=== PATIENT | male | born 1960 | race Caucasian/White ===

== ENCOUNTER 2017-08-16 01:14 | Inpatient (IN) | payer BC, OTHER ==
[2017-08-16 01:15] VITALS: BMI 30.2
--- NOTE | 2017-08-16 01:46 | ED PDOC ---
Arrival/HPI - General Chief Complaint: Chest Pain Time Seen by Provider: 08/16/17 01:16 Historian: Patient - History of Present Illness Narrative History of Present Illness (Text): 08/16/17 01:41 57 year old male, whose past medical history includes pericarditis, hypertension , and hypercholesteralemia, presents to the emergency department complaining of left sided chest discomfort associated with some pain to the left shoulder. Patient describes the discomfort as a burning sensation. Shoulder pain re reproducible with movement. Patient also reports tingling to the lips. He states the discomfort is better when he sits and seems to be aggravated when he lays down. Patient states the symptoms seem similar to his past medical history of percarditis. Denies any smoking or drug use. Patient denies any fever, chills , exertional chest pain, shortness of breath, nausea, vomiting, diarrhea, urinary symptoms, back pain, neck pain, headache, dizziness, or any other complaints. PMD: Dr. Holly Rodríguez Symptom Onset: Gradual Quality: Burning Activities at Onset: Light Context: Home Past Medical History - Provider Review Nursing Documentation Reviewed: Yes - Infectious Disease Hx of Infectious Diseases: None - Tetanus Immunization Tetanus Immunization: Unknown - Past Medical History Past Medical History: Non-Contributing - Cardiac Hx Hypertension: Yes - Pulmonary Hx Respiratory Disorders: No - Neurological Hx Neurological Disorder: No - HEENT Hx HEENT Disorder: No - Renal Hx Renal Disorder: No - Endocrine/Metabolic Hx Endocrine Disorders: No - Hematological/Oncological Hx Blood Disorders: No - Integumentary Hx Dermatological Disorder: No - Musculoskeletal/Rheumatological Hx 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) - Gastrointestinal Hx Gastrointestinal Disorders: No - Genitourinary/Gynecological Hx Genitourinary Disorders: No - Psychiatric Hx Psychophysiologic Disorder: No Hx Substance Use: No - Past Surgical History Past Surgical History: No Previous - Surgical History Other/Comment: hemroidectomy 1 yr ago - Anesthesia Hx Anesthesia: Yes Hx Anesthesia Reactions: No Hx Malignant Hyperthermia: No - Suicidal Assessment Feels Threatened In Home Enviroment: No Family/Social History - Physician Review Nursing Documentation Reviewed: Yes Family/Social History: No Known Family HX Smoking Status: Never Smoked Hx Alcohol Use: Yes (occasionly) Amount per day: 1 Hx Substance Use: No Hx Substance Use Treatment: No Allergies/Home Meds Allergies/Adverse Reactions: Allergies No Known Allergies Allergy (Verified 08/16/17 01:21) Home Medications: Home Meds Medication Instructions Recorded Confirmed Simvastatin 20 mg PO HS 03/12/14 08/16/17 Valsartan [Diovan] 160 mg PO DAILY 08/16/17 08/16/17 Review of Systems - Physician Review All systems were reviewed & negative as marked: Yes - Review of Systems Constitutional: absent: Fevers, Other (Chills) Respiratory: absent: SOB, Cough Cardiovascular: Chest Pain (Left sided ) Gastrointestinal: absent: Diarrhea, Nausea, Vomiting Genitourinary Male: absent: Dysuria, Frequency, Hematuria Musculoskeletal: Other (Left shoulder pain ). absent: Back Pain, Neck Pain Neurological: Other (tingling to the lips). absent: Headache, Dizziness Physical Exam Vital Signs Reviewed: Yes Vital Signs Temp Pulse Resp BP Pulse Ox 08/16/17 03:37 75 14 141/92 H 99 08/16/17 01:27 98.5 F 08/16/17 01:23 80 24 164/93 H 98 Temperature: Afebrile Blood Pressure: Hypertensive Pulse: Regular Respiratory Rate: Normal Appearance: Positive for: Well-Appearing, Non-Toxic, Comfortable Pain Distress: None Mental Status: Positive for: Alert and Oriented X 3 - Systems Exam Head: Present: Atraumatic, Normocephalic Pupils: Present: PERRL Extroacular Muscles: Present: EOMI Conjunctiva: Present: Normal Mouth: Present: Moist Mucous Membranes Neck: Present: Normal Range of Motion Respiratory/Chest: Present: Clear to Auscultation, Good Air Exchange. No: Respiratory Distress, Accessory Muscle Use Cardiovascular: Present: Regular Rate and Rhythm, Normal S1, S2. No: Murmurs Abdomen: No: Tenderness, Distention, Peritoneal Signs Back: Present: Normal Inspection Upper Extremity: Present: Other (reproducible discomfort to the left shoulder with movement. ). No: Cyanosis, Edema Lower Extremity: Present: Normal Inspection. No: Edema, CALF TENDERNESS, Jim' s Sign, Swelling Neurological: Present: GCS=15, CN II-XII Intact, Speech Normal Skin: Present: Warm, Dry, Normal Color. No: Rashes Psychiatric: Present: Alert, Oriented x 3, Normal Insight, Normal Concentration Medical Decision Making ED Course and Treatment: 08/16/17 01:51 Impression: 57 year old male presents complaining of left sided burning chest discomfort associated with reproducible left shoulder pain Differential Diagnosis included but are not limited to: Muscular Skeletal chest pain VS Pericarditis VS CAD Plan: -- EKG -- Labs -- Chest X-ray -- Aspirin -- Reassess and disposition Prior Visits: Notes and results from previous visits were reviewed. Patient was last seen in the emergency department on 11/25/14 presents complaining of recurrent chest pain. Patient was discharged. Progress Notes: EKG shows NSR at [address]/T changes. Interpreted by me. 08/16/17 03:22 CXR Impression: As read by me, no acute process. 08/16/17 03:[address] Victor who is aware and agrees with the plan. Accepts patient into her service with Dr. Palomino for consult. Patient will be admitted to Telemetry. - Lab Interpretations Lab Results: 08/16/17 01:40 08/16/17 01:40 Lab Results 08/16/17 10:30: ESR 3 08/16/17 07:55: Hepatitis A IgM Ab Negative, Hep Bs Antigen Negative, Hep B Core IgM Ab Negative, Hepatitis C Antibody Negative 08/16/17 07:30: TSH 3rd Generation 1.40 08/16/17 07:30: Hemoglobin A1c 6.3 08/16/17 07:30: Phosphorus 3.2, Magnesium 1.9, Lactate Dehydrogenase 385, Total Creatine Kinase 83, Troponin I < 0.01 D, Triglycerides 212 H, Cholesterol 137, LDL Cholesterol Direct 57, HDL Cholesterol 43 08/16/17 07:00: Lipase 58 08/16/17 01:40: WBC 6.1 D, RBC 4.46, Hgb 14.3, Hct 40.9 L, MCV 91.7, MCH 32.1, MCHC 35.0, RDW 13.1, Plt Count 237, MPV 12.1 H 08/16/17 01:40: Sodium 141, Potassium 4.6, Chloride 107, Carbon Dioxide 23, Anion Gap 15, BUN 21, Creatinine 0.9, Est GFR ( Amer) > 60, Est GFR (Non- Af Amer) > 60, Random Glucose 163 H, Calcium 9.9, Total Bilirubin 0.6, AST 86 H , ALT 78 H, Alkaline Phosphatase 71, Lactate Dehydrogenase 665, Total Creatine Kinase 111, Troponin I 0.02 D, Total Protein 6.9, Albumin 4.2, Globulin 2.6, Albumin/Globulin Ratio 1.6 08/16/17 01:40: PT 11.0, INR 0.97, APTT 25.9 I have reviewed the lab results: Yes - RAD Interpretation Radiology Orders: 08/16/17 01:34 CHEST PORTABLE [RAD] Stat 08/16/17 07:56 ABDOMEN COMPLETE [US] Urgent 08/16/17 12:21 ABDOMEN W/WO CONTRAST [CT] Routine - EKG Interpretation Interpreted by ED Physician: Yes Type: 12 lead EKG - Medication Orders Current Medication Orders: Discontinued Medications Aspirin (Aspirin) 325 mg PO ONCE STA Stop: 08/16/17 01:36 Last Admin: 08/16/17 01:47 Dose: 325 mg Atorvastatin Calcium (Lipitor) 10 mg PO HS [place] Last Admin: 08/16/17 21:53 Dose: 10 mg Ibuprofen (Motrin Tab) 600 mg PO Q6H PRN PRN Reason: Pain, moderate (4-7) Last Admin: 08/17/17 03:03 Dose: 600 mg [facility] Pain/Vitals Document 08/17/17 03:03 AP (Rec: 08/17/17 03:03 AP [id number]) Pain Reassessment Is This A Pain ReAssessment? No Presence of Pain Presence of Pain Yes Pain Scale Used Pain Scale Used Numeric Location Pain Location Body Vegetable Washer Description Intermittent Intensity 5 Pain Behavior Restlessness Alleviating Factors Medication Re-Assess: [facility] Pain/Vitals Document 08/17/17 04:03 AP (Rec: 08/17/17 04:16 AP [id number]) Pain Reassessment Is This A Pain ReAssessment? Yes Sleep Is patient sleeping during reassessment? Yes Indomethacin (Indocin) 25 mg PO TID [facility] Last Admin: 08/17/17 17:24 Dose: Losartan Potassium (Cozaar) 100 mg PO DAILY [facility] Last Admin: 08/17/17 09:20 Dose: 100 mg Pantoprazole Sodium (Protonix Ec Tab) 40 mg PO 0600 [facility] Last Admin: 08/17/17 05:39 Dose: 40 mg Pantoprazole Sodium (Protonix Ec Tab) 40 mg PO STAT STA Stop: 08/16/17 20:25 Last Admin: 08/16/17 21:53 Dose: 40 mg - Scribe Statement The provider has reviewed the documentation as recorded by the Jhoana Hartmann Provider Butchibmike Attestation: All medical record entries made by the Jhoana were at my direction and personally dictated by me. I have reviewed the chart and agree that the record accurately reflects my personal performance of the history, physical exam, medical decision making, and the department course for this patient. I have also personally directed, reviewed, and agree with the discharge instructions and disposition. Disposition/Present on Arrival - Present on Arrival Any Indicators Present on Arrival: No History of DVT/PE: No History of Uncontrolled Diabetes: No Urinary Catheter: No History of Decub. Ulcer: No History Surgical Site Infection Following: None - Disposition Have Diagnosis and Disposition been Completed?: Yes Diagnosis: Chest pain Disposition: HOSPITALIZED Disposition Time: 03:33 Patient Plan: Observation Condition: STABLE
[2017-08-16 02:07] LABS: CALCIUM 9.9 mg/dL (8.4-10.5); GFR AFRICAN-AMERICAN > 60; GFR NON-AFRICAN AMERICAN > 60
[2017-08-16 02:12] LABS: ALB/GLOB RATIO 1.6 (1.1-1.8); ALBUMIN 4.2 g/dL (3.0-4.8); ALT/SGPT 78 U/L (7-56); AST/SGOT 86 U/L (17-59); BLOOD UREA NITROGEN 21 mg/dL (7-21)
[2017-08-16 02:18] LABS: HEMOGLOBIN 14.3 g/dL (14.0-18.0); MEAN CELL VOLUME 91.7 fl (80.0-105.0); MEAN CORPUSCULAR HEMOGLOBIN 32.1 pg (25.0-35.0); MEAN PLATELET VOLUME 12.1 fl (7.0-11.0); RBC 4.46 10^6/uL (3.5-6.1); RED CELL DISTRIBUTION WIDTH 13.1 % (11.5-14.5); WHITE BLOOD COUNT 6.1 10^3/ul (4.5-11.0)
[2017-08-16 02:21] LABS: INR 0.97 (0.93-1.08)
[2017-08-16 02:22] LABS: PARTIAL THROMBOPLASTIN TIME 25.9 Seconds (25.1-36.5)
[2017-08-16 02:23] LABS: TROPONIN I 0.02 ng/mL
[2017-08-16 08:04] LABS: HDL CHOLESTEROL 43 mg/dL (29-60)
[2017-08-16 08:15] LABS: LDL CHOLESTEROL 57 mg/dL (0-129)
[2017-08-16 08:20] LABS: TROPONIN I < 0.01 ng/mL
--- NOTE | 2017-08-16 09:38 | RAD ---
HISTORY: Chest pain COMPARISON: 11/25/2014. FINDINGS: LUNGS: The lungs are clear. PLEURA: No significant pleural effusion identified, no pneumothorax apparent. CARDIOVASCULAR: Normal. OSSEOUS STRUCTURES: No significant abnormalities. VISUALIZED UPPER ABDOMEN: Normal. OTHER FINDINGS: None. IMPRESSION: No active pulmonary disease.
--- NOTE | 2017-08-16 10:01 | US ---
HISTORY: ab.lft, especially liver COMPARISON: None. TECHNIQUE: Grayscale imaging was performed. FINDINGS: LIVER: Measures 18.0 cm. There is diffuse increased echogenicity of the liver parenchyma. No mass. No intrahepatic bile duct dilatation. GALLBLADDER: There are no gallstones, wall thickening or pericholecystic fluid. The sonographic Peres's sign is negative. COMMON BILE DUCT: Measures 4.7 mm. No stones. No dilatation. PANCREAS: The pancreas appears enlarged with areas of decreased echogenicity. No ductal dilatation. RIGHT KIDNEY: Measures 10.2cm. Normal echogenicity. No calculus, mass, or hydronephrosis. LEFT KIDNEY: Measures 11.4cm. Normal echogenicity. No calculus, mass, or hydronephrosis. SPLEEN: There is borderline is. No mass. AORTA: No aneurysmal dilatation. IVC: Unremarkable. OTHER FINDINGS: None. IMPRESSION: Mild hepatosplenomegaly. Diffuse increased echogenicity in the liver may reflect hepatic steatosis however parenchymal infectious/ inflammatory etiologies cannot be entirely excluded. Clinical and laboratory correlation is advised. Apparent enlarged pancreas with questionable areas of edema. Pancreatitis cannot be entirely excluded. Please correlate with serum lipase levels. If clinically indicated, CT scan of the abdomen may be performed for further evaluation.
--- NOTE | 2017-08-16 10:38 | CARD ---
APPROVED REPORT EKG Measurement Heart [id number] <Conclusion> Normal sinus rhythm Possible Left atrial enlargement ST elevation, probably due to early repolarization No change
[2017-08-16 11:45] LABS: HEPATITIS B SURFACE AG Negative (NEGATIVE)
[2017-08-16 11:51] LABS: HEPATITIS B CORE AB NEGATIVE (NEGATIVE)
[2017-08-16 12:02] LABS: HEPATITIS C ANTIBODY NEGATIVE (NEGATIVE)
--- NOTE | 2017-08-16 12:28 | CP.PCM.HP ---
<Mary Ortega - Last Filed: 08/16/17 12:25> History of Present Illness - History of Present Illness History of Present Illness: Chief complaint: L sided chest pain, pericarditis 57 yr male w/ history of pericarditis, HTN, & hypercholesteroemia. Ad[place] to [facility] [facility] [place] reproducible L shoulder pain and L sided chest pain. Today, seen at bedside. Denies any fever, chills, chest pain, shortness of breath, nausea, vomiting, constipation, diarrhea, urinary symptoms, back pain, neck pain, headache, or dizziness. Present on Admission - Present on Admission Any Indicators Present on Admission: No History of DVT/PE: No History of Uncontrolled Diabetes: No Urinary Catheter: No Decubitus Ulcer Present: No Review of Systems - Constitutional Constitutional: As Per HPI - EENT Eyes: As Per HPI Ears: As Per HPI Nose/Mouth/Throat: As Per HPI - Cardiovascular Cardiovascular: As Per HPI - Respiratory Respiratory: As Per HPI - Gastrointestinal Gastrointestinal: As Per HPI - Genitourinary Genitourinary: As Per HPI - Reproductive: Male Reproductive:Male: As Per HPI - Musculoskeletal Musculoskeletal: As Per HPI - Integumentary Integumentary: As Per HPI - Neurological Neurological: As Per HPI - Psychiatric Psychiatric: As Per HPI - Endocrine Endocrine: As Per HPI - Hematologic/Lymphatic Hematologic: As Per HPI Past Patient History - Infectious Disease Hx of Infectious Diseases: None - Tetanus Immunizations Tetanus Immunization: Unknown - Past Medical History & Family History Past Medical History?: Yes - Past Social History Smoking Status: Former Smoker - CARDIAC Hx Cardiac Disorders: Yes (Pericarditis) Hx Hypercholesterolemia: Yes Hx Hypertension: Yes - PULMONARY Hx Respiratory Disorders: No - NEUROLOGICAL Hx Neurological Disorder: No - HEENT Hx HEENT Problems: No - RENAL Hx Chronic Kidney Disease: No - ENDOCRINE/METABOLIC Hx Endocrine Disorders: No - HEMATOLOGICAL/ONCOLOGICAL Hx Blood Disorders: No - INTEGUMENTARY Hx Dermatological Problems: No - MUSCULOSKELETAL/RHEUMATOLOGICAL Hx Arthritis: Yes Hx Falls: No Hx Osteoarthritis: Yes - GASTROINTESTINAL Hx Gastrointestinal Disorders: No - GENITOURINARY/GYNECOLOGICAL Hx Genitourinary Disorders: No - PSYCHIATRIC Hx Psychophysiologic Disorder: No - SURGICAL HISTORY Hx Surgeries: Yes - ANESTHESIA Hx Anesthesia: Yes Hx Anesthesia Reactions: No Hx Malignant Hyperthermia: No Meds Allergies/Adverse Reactions: Allergies Allergy/AdvReac Type Severity Reaction Status Date / Time No Known Allergies Allergy Verified 08/16/17 01:21 Physical Exam - Constitutional Appears: Well - Head Exam Head Exam: ATRAUMATIC, NORMAL INSPECTION, NORMOCEPHALIC - Eye Exam Eye Exam: EOMI, Normal appearance, PERRL Pupil Exam: NORMAL ACCOMODATION, PERRL - ENT Exam ENT Exam: Mucous Membranes Moist, Normal Exam - Neck Exam Neck exam: Positive for: Normal Inspection - Respiratory Exam Respiratory Exam: Clear to Auscultation Bilateral, NORMAL BREATHING PATTERN - Cardiovascular Exam Cardiovascular Exam: REGULAR RHYTHM, +S1, +S2 - GI/Abdominal Exam GI & Abdominal Exam: Normal Bowel Sounds, Soft. absent: Tenderness - Extremities Exam Extremities exam: Positive for: normal inspection - Back Exam Back exam: NORMAL INSPECTION - Neurological Exam Neurological exam: Alert, CN II-XII Intact, Normal Gait, Oriented x3, Reflexes Normal - Psychiatric Exam Psychiatric exam: Normal Affect, Normal Mood - Skin Skin Exam: Dry, Intact, Normal Color, Warm Results - Vital Signs Recent Vital Signs: Last Vital Signs Temp 98 F 08/16/17 06:00 Pulse 70 08/16/17 10:00 Resp 20 08/16/17 06:00 BP 139/94 H 08/16/17 06:00 Pulse Ox 96 08/16/17 06:00 - Labs Result Diagrams: 08/16/17 01:40 08/16/17 01:40 Labs: Laboratory Results - last 24 hr 08/16/17 08/16/17 08/16/17 07:30 07:30 07:30 ESR Hemoglobin A1c 6.3 Phosphorus 3.2 Magnesium 1.9 Lactate Dehydrogenase 385 Total Creatine Kinase 83 Troponin I < 0.01 D Triglycerides 212 H Cholesterol 137 LDL Cholesterol Direct 57 HDL Cholesterol 43 TSH 3rd Generation 1.40 Hepatitis A IgM Ab Hep Bs Antigen Hep B Core IgM Ab Hepatitis C Antibody 08/16/17 08/16/17 07:55 10:30 ESR 3 Hemoglobin A1c Phosphorus Magnesium Lactate Dehydrogenase Total Creatine Kinase Troponin I Triglycerides Cholesterol LDL Cholesterol Direct HDL Cholesterol TSH 3rd Generation Hepatitis A IgM Ab No result Hep Bs Antigen Negative Hep B Core IgM Ab Negative Hepatitis C Antibody Negative Assessment & Plan (1) Hepatosplenomegaly Status: Acute (2) Abnormal LFTs (liver function tests) Status: Acute (3) Prediabetes Status: Acute (4) Hyperglycemia Status: Acute - Assessment and Plan (Free Text) Plan: CT scan abd/pelvis ordered. Labs ordered. Hepatitis/Pancreatitis workup in place. GI/VTE prophylaxis. Consult: Cardio - Dr. Eagle GI - Reviewed: ECHO - ? CXR - WNL US abd - mild hepatosplenomegaly, diffuse echogenicity in liver r/o hepatic steatosis, enlarged pancreas r/o pancreatitis ECG - NSR, possible L atrial enlargement, ST elevation, probably due to early repolarization - Date & Time Date: 08/16/17 Time: 09:45 <Alyssa Marquez - Last Filed: 08/16/17 22:13> Results - Vital Signs Recent Vital Signs: Last Vital Signs Temp 98 F 08/16/17 17:40 Pulse 88 08/16/17 18:00 Resp 18 08/16/17 17:40 BP 147/89 08/16/17 17:40 Pulse Ox 96 08/16/17 06:00 - Labs Result Diagrams: 08/16/17 01:40 08/16/17 01:40 Labs: Laboratory Results - last 24 hr 08/16/17 08/16/17 08/16/17 07:00 07:30 07:30 ESR Hemoglobin A1c 6.3 Phosphorus 3.2 Magnesium 1.9 Lactate Dehydrogenase 385 Total Creatine Kinase 83 Troponin I < 0.01 D Triglycerides 212 H Cholesterol 137 LDL Cholesterol Direct 57 HDL Cholesterol 43 Lipase 58 TSH 3rd Generation Hepatitis A IgM Ab Hep Bs Antigen Hep B Core IgM Ab Hepatitis C Antibody 08/16/17 08/16/17 08/16/17 07:30 07:55 10:30 ESR 3 Hemoglobin A1c Phosphorus Magnesium Lactate Dehydrogenase Total Creatine Kinase Troponin I Triglycerides Cholesterol LDL Cholesterol Direct HDL Cholesterol Lipase TSH 3rd Generation 1.40 Hepatitis A IgM Ab Negative Hep Bs Antigen Negative Hep B Core IgM Ab Negative Hepatitis C Antibody Negative Assessment & Plan - Assessment and Plan (Free Text) Plan: 57 yr male w/ history of pericarditis, HTN, & hypercholesteroemia. Admitted to [facility] [place] for reproducible L shoulder pain and L sided chest pain. Today, seen at bedside. Denies any fever, chills, chest pain, shortness of breath, nausea, vomiting, constipation, diarrhea, urinary symptoms, back pain, neck pain, headache, or dizziness. 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 will f/u
[2017-08-16 12:39] LABS: HEPATITIS A IGM NEGATIVE (NEGATIVE)
--- NOTE | 2017-08-16 14:24 | CT ---
PROCEDURE: CT Abdomen with and without intravenous contrast HISTORY: r/o hepatic steatosis, r/o pancreatitis COMPARISON: None. TECHNIQUE: Axial images of the abdomen from lung bases to iliac crest with and without intravenous contrast enhancement. Coronal and sagittal reformats generated. Oral contrast was administered. 150 cc of Omni 350 Radiation dose: Total exam DLP = 1516 mGy-cm. This CT exam was performed using one or more of the following dose reduction techniques: Automated exposure control, adjustment of the mA and/or kV according to patient size, and/or use of iterative reconstruction technique. FINDINGS: LOWER THORAX: Unremarkable. LIVER: Unremarkable. No gross lesion or ductal dilatation. Mild fatty infiltration GALLBLADDER AND BILE DUCTS: Unremarkable. PANCREAS: Unremarkable. No gross lesion or ductal dilatation. SPLEEN: Unremarkable. ADRENALS: Unremarkable. No mass. KIDNEYS AND URETERS: Unremarkable. No hydronephrosis. No solid mass. VASCULATURE: Unremarkable. No aortic aneurysm. BOWEL: Unremarkable. No obstruction. No gross mural thickening. APPENDIX: Normal appendix. PERITONEUM: Unremarkable. No free fluid. No free air. LYMPH NODES: Unremarkable. No enlarged lymph nodes. BONES: No acute fracture. OTHER FINDINGS: None. IMPRESSION: Mild fatty infiltration. Normal pancreas.
[2017-08-16] MEDS ORDERED: Pantoprazole 40 mg EC Tab PO STA (20:24)
[2017-08-17 00:57] VITALS: O2SAT 97
[2017-08-17] MEDS ORDERED: Pantoprazole 40 mg EC Tab PO SCH (06:00)
[2017-08-17 12:36] VITALS: BP 153/94; RESP 18; TEMP 97.9
--- NOTE | 2017-08-17 14:11 | PN ---
DATE: 08/17/2017 CARDIOLOGY FOLLOWUP SUBJECTIVE: The patient is ambulating without symptoms. His symptoms are much better on Indocin. PHYSICAL EXAMINATION: VITAL SIGNS: Blood pressure is 150/94, heart rate in the 60s. NECK: Negative JVD. LUNGS: Without rales. HEART: S1, S2. EXTREMITIES: Without edema. Echocardiogram shows no pericardial effusion. Hemoglobin is 14.3. Troponin's are negative x2. IMPRESSION: 1. Improvement of pericarditis on Indocin. 2. History of hypertension. 3. Hypercholesterolemia. Given these findings, the patient is stable for discharge. He needs to remain on Indocin for several days from a cardiac perspective. Followup instructions have been given to the patient in detail. Larry Eagle MD
--- NOTE | 2017-08-17 16:02 | CON ---
DATE: 08/16/2017 HISTORY OF PRESENT ILLNESS: This is a 57-year-old patient with a past medical history of pericarditis, hypertension, and dyslipidemia, admitted with complaints of left-sided chest pain. Denies any abdominal pain. No change of bowel habits. No bleeding per rectum. No vomiting. Patient has a history of colonic polyp, had a colonoscopy done in 2014. Patient remembers having had upper endoscopies done before also. PAST MEDICAL HISTORY: Other past medical history is significant for hypertension and dyslipidemia. ALLERGIES: NO KNOWN DRUG ALLERGIES. SOCIAL HISTORY: Denies smoking or alcohol. FAMILY HISTORY: Noncontributory. REVIEW OF SYSTEMS: Positive as above, other systems reviewed. PHYSICAL EXAMINATION: GENERAL: The patient is comfortable lying on the bed, not in acute distress. VITAL SIGNS: Temperature is 98, blood pressure is 144/95, respirations 18, O2 saturation is 70%. HEENT: Atraumatic, anicteric. NECK: Supple. HEART: S1 and S2 heard. LUNGS: Bilateral air entry present. ABDOMEN: Soft. There is no mass palpable. No tenderness. EXTREMITIES: No edema. No tenderness. LABORATORY DATA: Hemoglobin 14.3, hematocrit 40.9, WBC 6.1, platelets 231. AST is 86, ALT is 78. Hepatitis serology negative. The patient did have ultrasound scan of the abdomen done, which showed mild hepatosplenomegaly, diffuse increased echogenicity of the liver. Enlarged pancreas with questionable areas of edema in the ultrasound, but the patient subsequently had a CAT scan done to evaluate the pancreas. The CT was again done with and without contrast and found to have fatty infiltration of the pancreas. Patient's LFTs when he came in was patient had hepatitis profile done, which was negative. IMPRESSION: patient is being placed on Motrin. Ultrasound showed no gallstones. Fatty liver disease, mainly hepatosplenomegaly. This is a 57-year-old patient admitted with left-sided , history of pancreatitis, pericarditis before. Would recommend pureed diet or liquid diet. 2. . We will continue to . We will follow up with the labs. We will follow up with the LFTs. We will continue to closely follow up with his care and suggest further management based on the clinical course. Jennyfer Welch MD [facility] # [phone]
[2017-08-17 16:13] VITALS: PULSE 70
--- NOTE | 2017-08-17 16:32 | CP.PCM.PN ---
Subjective - Date & Time of Evaluation Date of Evaluation: 08/24/17 Time of Evaluation: 10:20 - Subjective Subjective: Seen and examined at the bedside earlier today, chart review. Patient denies nausea, vomiting, or abdominal pain. Patient had regular formed stool this morning no reports of any overt GI bleed. No acute overnight events reported. Objective - Vital Signs/Intake and Output Vital Signs (last 24 hours): Temp Pulse Resp BP Pulse Ox 97.9 F 70 18 153/94 H 97 08/17/17 12:00 08/17/17 14:00 08/17/17 12:00 08/17/17 12:00 08/17/17 05:53 Intake and Output: 08/17/17 08/17/17 06:59 18:59 Intake Total 840 Balance 840 - Medications Medications: Current Medications Atorvastatin Calcium (Lipitor) 10 mg PO HS [facility] Last Admin: 08/16/17 21:53 Dose: 10 mg Indomethacin (Indocin) 25 mg PO TID [facility] Last Admin: 08/17/17 14:23 Dose: 25 mg Losartan Potassium (Cozaar) 100 mg PO DAILY [facility] Last Admin: 08/17/17 09:20 Dose: 100 mg Pantoprazole Sodium (Protonix Ec Tab) 40 mg PO 0600 [facility] Last Admin: 08/17/17 05:39 Dose: 40 mg - Labs Labs: PT 11.0 SECONDS (9.4-12.5) 08/16/17 01:40 INR 0.97 (0.93-1.08) 08/16/17 01:40 APTT 25.9 Seconds (25.1-36.5) 08/16/17 01:40 - Constitutional Appears: No Acute Distress - Head Exam Head Exam: NORMOCEPHALIC - Eye Exam Eye Exam: Normal appearance. absent: Scleral icterus - ENT Exam ENT Exam: Mucous Membranes Moist - Neck Exam Neck Exam: Normal Inspection - Respiratory Exam Respiratory Exam: Clear to Ausculation Bilateral, NORMAL BREATHING PATTERN. absent: Respiratory Distress - Cardiovascular Exam Cardiovascular Exam: +S1, +S2 - GI/Abdominal Exam GI & Abdominal Exam: Soft, Normal Bowel Sounds. absent: Guarding, Tenderness, Organomegaly, Rebound - Extremities Exam Extremities Exam: absent: Calf Tenderness, Pedal Edema - Neurological Exam Neurological Exam: Alert, Awake, Oriented x3 Assessment and Plan - Assessment and Plan (Free Text) Assessment: Assessment: Elevated liver enzymes, status post abdominal ultrasound negative for gallstones but showing fatty infiltrations of the liver and changes in the pancreas probable pancreatitis, patient had a CT scan of the abdomen which reported the pancreas to be unremarkable and again showed fatty liver disease. History of pericarditis History of hypertension and dyslipidemia Plan: Monitor liver enzymes Avoid hepatotoxic medication Continue diet as tolerated Patient has history of NSAID use continue PPI and discuss follow-up with his GI doctor Seen and discussed with Dr. Seay.
--- NOTE | 2017-08-18 07:53 | DS ---
CHIEF COMPLAINT: Left-sided chest pain. HISTORY OF PRESENT ILLNESS: Mr. Alejandro Saenz is a 57-year-old male with history of pericarditis, hypertension, hypercholesterolemia, admitted to [facility] for reproducible left shoulder pain and left-sided chest pain. No fever, no chills, no headaches, no dizziness, no shortness of breath. No nausea, vomiting or diarrhea. No constipation, no hematuria or hematochezia. We admitted the patient and first did blood test, liver function test was abnormal, and ultrasound shows hepatomegaly and splenomegaly. CAT was done and that is within normal limits. Because of splenomegaly and hepatomegaly and abnormal liver function test, GI consult was called, Dr. Welch, appreciated his input. Then, patient went for echocardiography. The patient was seen by Dr. Larry Quintanilla. He had diagnosis of pericarditis, started on indomethacin, and patient improved. Dr. Larry Eagle cleared the patient for discharge and wanted to do further workup as outpatient, discharged the patient is on indomethacin, and follow up as outpatient, medicines on the bedside. PAST MEDICAL HISTORY: History of pericarditis, hypertension, hemorrhoidectomy. FAMILY HISTORY: Father and mother noncontributory. HABITS: Never smoked. No drugs. No ethanol. Alcohol occasionally. No substance abuse. ALLERGIES: PATIENT IS NOT ALLERGIC TO ANY MEDICATIONS. HOME MEDICATION: Simvastatin and valsartan. REVIEW OF SYSTEMS: Patient was seen and examined on the bedside on 08/17/2017, looking comfortable. No nausea, vomiting, or diarrhea. No hematuria or hematochezia. No swelling of the legs. Chest pain is getting better. No fever. No chills. Review of systems 10-point is negative except above. PHYSICAL EXAMINATION: VITAL SIGNS: Temperature 97.9, pulse 70, blood pressure 157/94, respiratory rate 18. HEENT: Head normocephalic, atraumatic. Eyes, PERRLA. Extraocular movements intact. Conjunctivae clear. Nose patent. Mucous membrane moist. NECK: Supple. No carotid bruit. No JVD or thyromegaly. CHEST: Bilaterally symmetrical. HEART: S1 and S2 positive. LUNGS: Clear to auscultation. ABDOMEN: Soft. Bowel sounds present. No organomegaly. EXTREMITIES: No edema. No cyanosis. NEUROLOGIC: Patient is awake and alert. Moving all 4 extremities. No focal deficit. LABORATORY DATA: White blood cells 6.1, hemoglobin 14.3, hematocrit 48.9, platelet 237. Sodium 141, potassium 4.1, BUN 21, creatinine 0.8, glucose 153. Hemoglobin A1c is 6.3. AST 86, ALT 78. Triglycerides 212. ASSESSMENT: Mr. Alejandro Saenz is a 49-year-old male with prediabetes, abnormal liver function test, hypertriglyceridemia, hypertension. Serology is negative. Seen by GI, Dr. Welch and his nurse practitioner, Sharon Dye. ultrasound and negative for gallstones, but showing fatty infiltration of the liver, and changes in pancreas, probably pancreatitis. The patient had a CT scan of the abdomen which reported the pancreas to be unremarkable and again showing fatty liver disease. Patient had a history of pericarditis, and right now has pericarditis, hypertension, dyslipidemia. PLAN: The patient will need monitoring of the liver enzymes avoid hepatotoxic medications. Continue diet as tolerated. The patient is on NSAIDs and continue PPI, and needs followup as outpatient. The patient discharged to home, he is cleared by Dr. 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 There is improvement in pericarditis on indomethacin. According to Cardiology, given these findings, the patient is stable for discharge, needs to remain on indomethacin for several days from cardiac perspective. 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 Alyssa Marquez MD
== END 2017-08-17 18:59 | disposition home or self-care (01) | DRG 316 ==
LOC: ED 01:14 → ERH 03:31 → 2RNO 04:16 → OBSVTOIN 08-17 08:19
PROVIDERS: ADMIT Internal Medicine; ATTEND Internal Medicine
DX: I31.9 Disease of pericardium, unspecified (principal); R07.89 Other chest pain; I10 Essential (primary) hypertension; E78.00 Pure hypercholesterolemia, unspecified; K76.0 Fatty (change of) liver, not elsewhere classified; R16.2 Hepatomegaly with splenomegaly, not elsewhere classified; R73.03 Prediabetes; Z86.010 Personal history of colon polyps; Z87.891 Personal history of nicotine dependence

== ENCOUNTER 2017-08-29 12:04 | Observation (INO) | payer BC ==
[2017-08-29 12:18] VITALS: BMI 29.6
[2017-08-29] MEDS ORDERED: Morphine 4 mg/ml ISec IVP STA (12:33)
--- NOTE | 2017-08-29 13:02 | ED PDOC ---
Arrival/HPI - General Chief Complaint: Chest Pain Time Seen by Provider: 08/29/17 12:06 Historian: Patient - History of Present Illness Narrative History of Present Illness (Text): you were treated in the ED today for hx of HTN, HL, Myocardial spect test normal with ejection fracture 65% from recent discharge 08/17/17 for pericarditits which you take indomethacin and today having generalized chest pain and jaw pain 9-10 with lightheadedness but otherwise without any nausea/ vomiting/headache/dizziness/difficulty breathing/chest pain/abdomen pain/ numbness/tingling/loss of limb function/pain with urination/travel/prior blood clots/prior cancer. 08/29/17 12:58 08/29/17 12:59 Time/Duration: 24 hours Symptom Onset: Gradual Symptom Course: Unchanged Quality: Aching Severity Level: 9 Activities at Onset: Rest Context: Sitting Past Medical History - Provider Review Nursing Documentation Reviewed: Yes - Travel History Have you recently traveled outside [place] w/in the past 3 mons?: No - Infectious Disease Hx of Infectious Diseases: None - Tetanus Immunization Tetanus Immunization: Unknown - Past Medical History Past Medical History: Non-Contributing - Cardiac Hx Hypertension: Yes - Pulmonary Hx Respiratory Disorders: No - Neurological Hx Neurological Disorder: No - HEENT Hx HEENT Disorder: No - Renal Hx Renal Disorder: No - Endocrine/Metabolic Hx Endocrine Disorders: No - Hematological/Oncological Hx Blood Disorders: No - Integumentary Hx Dermatological Disorder: No - Musculoskeletal/Rheumatological Hx 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) - Gastrointestinal Hx Gastrointestinal Disorders: No - Genitourinary/Gynecological Hx Genitourinary Disorders: No - Psychiatric Hx Psychophysiologic Disorder: No Hx Substance Use: No - Past Surgical History Past Surgical History: No Previous - Surgical History Other/Comment: hemroidectomy 1 yr ago - Anesthesia Hx Anesthesia: Yes Hx Anesthesia Reactions: No Hx Malignant Hyperthermia: No - Suicidal Assessment Feels Threatened In Home Enviroment: No Family/Social History - Physician Review Nursing Documentation Reviewed: Yes Family/Social History: No Known Family HX Smoking Status: Never Smoked Hx Alcohol Use: Yes (occasionly) Amount per day: 1 Hx Substance Use: No Hx Substance Use Treatment: No Allergies/Home Meds Allergies/Adverse Reactions: Allergies No Known Allergies Allergy (Verified 08/16/17 01:21) Home Medications: Home Meds Medication Instructions Recorded Confirmed Simvastatin 20 mg PO HS 03/12/14 08/29/17 Valsartan [Diovan] 160 mg PO DAILY 08/16/17 08/29/17 Aspirin [Ecotrin] 81 mg PO DAILY 08/25/17 08/29/17 Review of Systems - Review of Systems Constitutional: Normal Eyes: Normal ENT: Normal Respiratory: Normal Cardiovascular: Chest Pain Gastrointestinal: Normal Genitourinary Male: Normal Musculoskeletal: Normal Skin: Normal Neurological: Normal Endocrine: Normal Hemo/Lymphatic: Normal Psychiatric: Normal Physical Exam Vital Signs Reviewed: Yes Vital Signs Temp Pulse Pulse Resp BP Pulse Ox 08/29/17 15:01 66 08/29/17 15:00 65 16 151/90 H 99 08/29/17 12:18 98.4 F 71 16 98 Temperature: Afebrile Blood Pressure: Hypertensive Pulse: Regular Respiratory Rate: Normal Appearance: Positive for: Well-Appearing, Non-Toxic, Comfortable Pain Distress: None Mental Status: Positive for: Alert and Oriented X 3 - Systems Exam Head: Present: Atraumatic, Normocephalic Pupils: Present: PERRL Extroacular Muscles: Present: EOMI Conjunctiva: Present: Normal Ears: Present: Normal Mouth: Present: Moist Mucous Membranes Pharnyx: Present: Normal Nose (External): Present: Atraumatic Nose (Internal): Present: Normal Inspection Neck: Present: Normal Range of Motion Respiratory/Chest: Present: Clear to Auscultation Cardiovascular: Present: Regular Rate and Rhythm Abdomen: No: Tenderness, Distention, Normal Bowel Sounds, Peritoneal Signs, Rebound, Guarding, McBurney's Point Tender, Rovsing's Sign Present, Hernias, Feeding Tubes, Ostomy Tubes, Mass/Organomegaly, Scars, Other Back: Present: Normal Inspection, Other (no c-t-l spinal or paraspinal tenderness) Upper Extremity: Present: Normal Inspection Lower Extremity: Present: Normal Inspection Neurological: Present: GCS=15, CN II-XII Intact, Speech Normal, Motor Func Grossly Intact Skin: Present: Warm, Normal Color Psychiatric: Present: Alert, Oriented x 3, Normal Insight, Normal Concentration Medical Decision Making ED Course and Treatment: you were treated in the ED today for hx of HTN, HL, Myocardial spect test normal with ejection fracture 65% from recent discharge 08/17/17 for pericarditits which you take indomethacin and today having generalized chest pain and jaw pain 9-10 with lightheadedness and has been intermittently taking indomethacin as needed for pain but otherwise without any nausea/vomiting/ headache/dizziness/difficulty breathing/chest pain/abdomen pain/numbness/ tingling/loss of limb function/pain with urination/travel/prior blood clots/ prior cancer. You were otherwise breathing easily, smiling and talking easily, good strength/sensation, walking easily, clear lungs, no abdomen tenderness, no fever temp 98.4, stable heart rate 71, stable breathing rate 16, excellent oxygen level 98% room air, elevated blood pressure 151/90 which we recommend repeat in 2-3 days primary care office to determine further treatment, you have blood tests no infection count 6, stable blood level hemoglobin 14/platelets 184 , stable chemistry, elevated liver AST 58, heart blood test less than 0.01, urine test____, chest xray radiology no acute findings, ECG normal sinus rhythm times two, on indomethacin which you took already, morphine, intravenous fluids , observation done in the ED with improvement, counselled to take indomethacin as prescribed. Report Date : 08/29/2017 14:00:36 Procedure: Chest xray Dictator : Avtar Perez MD IMPRESSION: No active disease. paged Dr. Eagle. d/.w Dr. Marquez who stated can admit for observation. Reassessment Condition: Re-examined, Improved - Lab Interpretations Lab Results: 08/29/17 13:15 08/29/17 13:15 Lab Results 08/29/17 17:04: Troponin I < 0.01 08/29/17 13:15: Sodium 144, Potassium 4.8, Chloride 105, Carbon Dioxide 27, Anion Gap 17, BUN 17, Creatinine 1.1, Est GFR ( Amer) > 60, Est GFR (Non- Af Amer) > 60, Random Glucose 86, Calcium 9.8, Magnesium 2.0, Total Bilirubin 0.7, AST 36, ALT 58 H, Alkaline Phosphatase 53, Lactate Dehydrogenase 372, Total Creatine Kinase 53, Troponin I < 0.01, Total Protein 7.4, Albumin 4.8, Globulin 2.7, Albumin/Globulin Ratio 1.8 08/29/17 13:15: PT 11.3, INR 0.98, APTT 34.7 08/29/17 13:15: WBC 6.0, RBC 4.74, Hgb 14.6, Hct 42.2, MCV 89.0, MCH 30.8, MCHC 34.6, RDW 12.5, Plt Count 184, MPV 10.8, Gran % 77.3 H, Lymph % (Auto) 15.7 L, [place] % (Auto) 6.5 H, Eos % (Auto) 0.3 L, Baso % (Auto) 0.2, Gran # 4.61, Lymph # (Auto) 0.9 L, [place] # (Auto) 0.4, Eos # (Auto) 0.0, Baso # (Auto) 0.01 I have reviewed the lab results: Yes - RAD Interpretation Radiology Orders: 08/29/17 12:33 CHEST PORTABLE [RAD] Stat Bias Binding Cutter: ED Physician (cxr no acute) - EKG Interpretation Interpreted by ED Physician: Yes (NSR, flipped t waves avr, v1) Type: 12 lead EKG - Medication Orders Current Medication Orders: Discontinued Medications Morphine Sulfate (Morphine) 4 mg IVP STAT STA Stop: 08/29/17 12:34 Last Admin: 08/29/17 13:31 Dose: 4 mg MAR Pain Assessment Document 08/29/17 13:31 MS (Rec: 08/29/17 13:32 MS [id number]) Pain Reassessment Is this a pain reassessment? No Sleep Is patient sleeping during reassessment? No Presence of Pain Presence of Pain Yes Pain Scale Used Pain Scale Used Numeric Location Left, Right or Bilateral Left Pain Location Body Site Chest Description Description Intermittent Intensity of Pain at present 9 Pain Behavior Withdrawal from Touch Facial Grimacing IVP Administration Document 08/29/17 13:31 MS (Rec: 08/29/17 13:32 MS [id number]) Charges for Administration # of IVP Administrations 1 Ondansetron HCl (Zofran Inj) 4 mg IVP STAT STA Stop: 08/29/17 12:35 Last Admin: 08/29/17 13:31 Dose: 4 mg IVP Administration Document 08/29/17 13:31 MS (Rec: 08/29/17 13:31 MS [id number]) Charges for Administration # of IVP Administrations 1 Disposition/Present on Arrival - Present on Arrival Any Indicators Present on Arrival: No History of DVT/PE: No History of Uncontrolled Diabetes: No Urinary Catheter: No History of Decub. Ulcer: No History Surgical Site Infection Following: None - Disposition Have Diagnosis and Disposition been Completed?: Yes Diagnosis: Chest pain Disposition: HOSPITALIZED Disposition Time: 18:35 Patient Plan: Admission Condition: IMPROVED Discharge Instructions (ExitCare): Chest Pain (ED) Forms: [employer] (Dominican)
[2017-08-29 13:32] LABS: BASO # 0.01 K/mm3 (0.0-2.0); BASO % 0.2 % (0.0-3.0); EOS % 0.3 % (1.5-5.0); GRAN # 4.61 (1.4-6.5); GRAN % 77.3 % (50.0-68.0); HEMOGLOBIN 14.6 g/dL (14.0-18.0); LYMPH # 0.9 (1.2-3.4); LYMPH % 15.7 % (22.0-35.0); MEAN CORPUSCULAR HEMOGLOBIN 30.8 pg (25.0-35.0); MEAN CORPUSCULAR HGB CONC 34.6 g/dl (31.0-37.0); MEAN PLATELET VOLUME 10.8 fl (7.0-11.0); MONO # 0.4 (0.1-0.6); MONO % 6.5 % (1.0-6.0); RBC 4.74 10^6/uL (3.5-6.1); RED CELL DISTRIBUTION WIDTH 12.5 % (11.5-14.5)
[2017-08-29 13:49] LABS: ALB/GLOB RATIO 1.8 (1.1-1.8); ALBUMIN 4.8 g/dL (3.0-4.8); ALT/SGPT 58 U/L (7-56); AST/SGOT 36 U/L (17-59); BLOOD UREA NITROGEN 17 mg/dL (7-21); CALCIUM 9.8 mg/dL (8.4-10.5); GFR AFRICAN-AMERICAN > 60; GFR NON-AFRICAN AMERICAN > 60; INR 0.98 (0.93-1.08); PARTIAL THROMBOPLASTIN TIME 34.7 Seconds (25.1-36.5); PROTHROMBIN TIME 11.3 SECONDS (9.4-12.5)
[2017-08-29 13:58] LABS: TROPONIN I < 0.01 ng/mL
--- NOTE | 2017-08-29 14:02 | RAD ---
HISTORY: 57yoM, chest pain COMPARISON: 08/16/2017 FINDINGS: LUNGS: No active pulmonary disease. PLEURA: No significant pleural effusion identified, no pneumothorax apparent. CARDIOVASCULAR: Normal. OSSEOUS STRUCTURES: No significant abnormalities. VISUALIZED UPPER ABDOMEN: Normal. OTHER FINDINGS: None. IMPRESSION: No active disease.
--- NOTE | 2017-08-29 16:42 | CARD ---
APPROVED REPORT EKG Measurement Heart [id number] <Conclusion> Normal sinus rhythm Possible Left atrial enlargement Borderline ECG
[2017-08-29 19:06] LABS: URINE BILIRUBIN NEGATIVE (NEGATIVE); URINE BLOOD NEGATIVE (NEGATIVE); URINE GLUCOSE (UA) NEGATIVE (NEGATIVE); URINE LEUKOCYTE ESTERASE NEGATIVE Leu/uL (NEGATIVE); URINE PROTEIN NEGATIVE mg/dL (<30 mg/dL); URINE UROBILINOGEN 0.2 E.U./dL (<1 E.U./dL)
[2017-08-29 19:11] LABS: URINE APPEARANCE CLEAR (CLEAR); URINE COLOR YELLOW (YELLOW)
[2017-08-30 05:17] LABS: BARBITURATES, UR NEGATIVE (NEGATIVE); BENZODIAZEPINES, UR NEGATIVE (NEGATIVE); OPIATES, UR POSITIVE (NEGATIVE); PHENCYCLIDINE, UR NEGATIVE (NEGATIVE)
[2017-08-30] MEDS ORDERED: Pantoprazole 40 mg EC Tab PO SCH (06:00)
[2017-08-30 06:55] VITALS: RESP 20; O2SAT 97
--- NOTE | 2017-08-30 11:20 | CARD ---
APPROVED REPORT EKG Measurement Heart [id number] ID [id number] <Conclusion> Normal sinus rhythm Possible Left atrial enlargement Possible Acute pericarditis Abnormal ECG
--- NOTE | 2017-08-30 11:56 | HP ---
The patient is a 57-year-old male. The patient was seen and examined at bedside on 08/29/2017. CHIEF COMPLAINT: Chest pain. HISTORY OF PRESENT ILLNESS: Mr. Alejandro Saenz is a 57-year-old male with past medical history of hypertension, hypercholesterolemia, myocardial SPECT tests are normal with ejection fraction of 65%, was recently discharged on 08/17/2017 and was admitted for pericarditis and he was discharged with indomethacin, was seen in carpenter's assistant's and primary care physician's office also, came with generalized chest pain and jaw pain, 9 to 10 with lightheadedness, but otherwise without any nausea or vomiting. No fever. No chills. No abdominal pain. No tingling or loss of vision. PAST MEDICAL HISTORY: As above. Hypertension, arthritis, hemorrhoidectomy, FAMILY HISTORY: Father and mother, noncontributory. HABITS: Smoking, never smoked. Alcohol, yes occasionally. Substance abuse, never. ALLERGIES: THE PATIENT HAS NO ALLERGY TO ANY MEDICATIONS. HOME MEDICATIONS: Simvastatin, Diovan, aspirin, and indomethacin. REVIEW OF SYSTEMS: The patient was seen and examined at the bedside on 08/29/2017 by me in the Emergency Room. At that moment, chest pain had gone. No fever. No chills. No nausea, vomiting, or diarrhea. No hematuria or hematochezia. No headache. No dizziness. No chest pain or palpitations at that moment. PHYSICAL EXAMINATION: VITAL SIGNS: Temperature 98.4, pulse 75, respiratory rate 16, blood pressure 150/90, pulse oximetry 99. HEENT: Head is normocephalic and atraumatic. Eyes, PERRLA. Extraocular muscles are intact. Conjunctivae are clear. Nose is patent. Mucous membrane is moist. NECK: Supple. No carotid bruit. No JVD or thyromegaly. CHEST: Bilateral symmetrical. HEART: S1 and S2, positive. LUNGS: Clear to auscultation. ABDOMEN: Soft. Bowel sounds positive. No organomegaly. EXTREMITIES: No edema. No cyanosis. NEUROLOGIC: The patient is awake and alert. Moving all 4 extremities. No focal deficits. LABORATORY DATA: White blood cells 6, hemoglobin 14.6, hematocrit 42.2, and platelets 184. Sodium 144, potassium 4.8, BUN 70, creatinine 1.7, and glucose 86. ASSESSMENT AND PLAN: Mr. Alejandro Saenz is a 57-year-old male with hypertension and hypercholesterolemia, came with chest pain, seen by Dr. Discussion done with him. 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 Cardiology consult was done. History of hypertension, hypercholesterolemia, myocardial SPECT tests are normal with ejection fraction 65%, was discharged on 08/17/2017, last time admission diagnosis was pericarditis. The patient was discharged to home with indomethacin, now came with chest pain, generalized weakness. Discussion done with ER physician. Medicine is started. Gastrointestinal and deep venous thrombosis prophylaxis. Repeat labs. Alyssa Marquez MD MTDD
[2017-08-30 17:53] VITALS: BP 143/90; PULSE 63; TEMP 98.2
== END 2017-08-30 19:31 | disposition home or self-care (01) ==
LOC: ED 12:04 → ERH 18:36 → 2RNO 08-30 00:01
PROVIDERS: ADMIT Internal Medicine; ATTEND Internal Medicine
DX: R07.9 Chest pain, unspecified (principal); R53.1 Weakness; R68.84 Jaw pain; I10 Essential (primary) hypertension; E78.00 Pure hypercholesterolemia, unspecified; I31.9 Disease of pericardium, unspecified; M19.90 Unspecified osteoarthritis, unspecified site
CPT/HCPCS: 71045; 80053; 81003; 82550; 83615; 83735; 84484; 85025; 85610; 85730; 87086; 93005; 96374; 96375; 99285; G0378; G0480; J2270; J2405

== ENCOUNTER 2017-09-10 10:48 | Inpatient (IN) | payer BC ==
[2017-09-10 10:55] VITALS: BMI 29.7
[2017-09-10] MEDS ORDERED: Sodium Chloride 0.9% 1,000 ML IV STA (11:35)
--- NOTE | 2017-09-10 11:46 | ED PDOC ---
Arrival/HPI - General Chief Complaint: GI Problem Time Seen by Provider: 09/10/17 11:35 Historian: Patient - History of Present Illness Narrative History of Present Illness (Text): 09/10/17 11:36 pt p/w + sudden onset of bloody bowel movement x 3 episodes total today (1 episode here in the ED); pt states bloody BM occurred when normal stool was passed and then a sudden gush of loose/dark/BM that was non-painful; pt states now his abd felt crampy and bloated; pt states no abd pain; pt states no fever/ chills/sweats, no cp/sob/palpitations, no n/v, no appetite changes, no urinary changes, no LOC/lightheadedness/dizziness, no MERCADO, no exertional sob; pt denied other complaints; pt is here for further eval pt was recently dx with pericarditits and has been on NSAIDS since 08/17? pt had contacted on-call Dr bryce Eagle and was instructed to come to ED for further eval PCP: DR Rodriguez cards: Dr Eagle Time/Duration: 24 hours Symptom Onset: Sudden Symptom Course: Unchanged Quality: Cramping Severity Level: Mild Activities at Onset: Rest Context: Home Past Medical History - Provider Review Nursing Documentation Reviewed: Yes - Travel History Have you recently traveled outside [place] w/in the past 3 mons?: No - Past History Past History: No Previous - Infectious Disease Hx of Infectious Diseases: None - Tetanus Immunization Tetanus Immunization: Unknown - Past Medical History Past Medical History: Non-Contributing - Cardiac Hx Cardiac Disorders: Yes (Pericarditis) Hx Hypertension: Yes - Pulmonary Hx Respiratory Disorders: No - Neurological Hx 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, Numbness work related [employer]) Hx Dizziness: Yes - HEENT Hx HEENT Disorder: Yes (Eye surgery Retina repair) - Renal Hx Renal Disorder: No Hx Dialysis: No - Endocrine/Metabolic Hx Endocrine Disorders: No - Hematological/Oncological Hx Blood Disorders: No - Integumentary Hx Dermatological Disorder: No - Musculoskeletal/Rheumatological Hx Musculoskeletal Disorders: Yes Hx Arthritis: Yes (work related [employer]) - Gastrointestinal Hx Gastrointestinal Disorders: No - Genitourinary/Gynecological Hx Genitourinary Disorders: No - Psychiatric Hx Psychophysiologic Disorder: No Hx Substance Use: No - Past Surgical History Past Surgical History: No Previous - Surgical History Hx Amputation: No Hx Appendectomy: No Hx Cardiac Catheterization: No Hx Cholecystectomy: No Hx Coronary Stent: No Hx Gastric Bypass Surgery: No Hx Hysterectomy: No Hx Inguinal Hernia Repair: No Hx Joint Replacement: No Hx Kidney Transplant: No Hx Liver Transplant: No Hx Mastectomy: No Hx Musculoskeletal Surgery: No Hx Open Heart Surgery: No Hx Orthopedic Surgery: No Hx Splenectomy: No Hx Valve Replacement: No - Anesthesia Hx Anesthesia: Yes Hx Anesthesia Reactions: No Hx Malignant Hyperthermia: No - Suicidal Assessment Feels Threatened In Home Enviroment: No Family/Social History - Physician Review Nursing Documentation Reviewed: Yes Family/Social History: No Known Family HX Smoking Status: Never Smoked Hx Alcohol Use: Yes (occasionly) Frequency of alcohol use: Socially Amount per day: 1 Hx Substance Use: No Hx Substance Use Treatment: No Allergies/Home Meds Allergies/Adverse Reactions: Allergies No Known Allergies Allergy (Verified 08/16/17 01:21) Home Medications: Home Meds Medication Instructions Recorded Confirmed Simvastatin 20 mg PO HS 03/12/14 09/10/17 Valsartan [Diovan] 160 mg PO DAILY 08/16/17 09/10/17 Pantoprazole Sodium [Protonix] 40 mg PO DAILY 09/10/17 09/10/17 Review of Systems - Review of Systems Constitutional: Normal Eyes: Normal ENT: Normal Respiratory: Normal. absent: SOB Cardiovascular: Normal. absent: Chest Pain Gastrointestinal: Abdominal Pain, Diarrhea, Other (bloody BM). absent: Constipation, Nausea, Vomiting Genitourinary Male: Normal Musculoskeletal: Normal Skin: Normal Neurological: Normal, Other (diffuse body parathesia (mild) - pt attributed to taking NSAIDS for his pericarditis). absent: Headache Endocrine: Normal. absent: Diaphoresis Hemo/Lymphatic: Normal Psychiatric: Normal Physical Exam Vital Signs Reviewed: Yes Vital Signs Temp Pulse Pulse Resp BP Pulse Ox 09/10/17 13:51 98.7 F 87 18 97 09/10/17 13:27 98.4 F 88 88 16 142/90 09/10/17 13:06 98.6 F 70 18 148/86 09/10/17 10:48 98.4 F 88 16 142/90 98 Temperature: Afebrile Blood Pressure: Hypertensive Pulse: Regular Respiratory Rate: Normal Appearance: Positive for: Well-Appearing, Non-Toxic, Uncomfortable, Other (alert /awake, GCS = 15, oriented x 3, NAD, mildly uncomfortable, resting in bed, cooperative, follows command with ease) Pain Distress: None Mental Status: Positive for: Alert and Oriented X 3 - Systems Exam Head: Present: Atraumatic, Normocephalic Pupils: Present: PERRL, Other (wearing eye glasses; no nystagmus, no photophobia , sclera anicteric) Extroacular Muscles: Present: EOMI Conjunctiva: Present: Normal Ears: Present: Normal Mouth: Present: Moist Mucous Membranes, Normal Teeth, Other (no dysphonia, no drooling, uvula/tongue are midline) Pharnyx: Present: Normal Nose (External): Present: Atraumatic Nose (Internal): Present: Normal Inspection Neck: Present: Normal Range of Motion, Trachea Midline, Other (intact ROM, no midline tenderness). No: Meningeal Signs, MIDLINE TENDERNESS, Paraspinal Tenderness Respiratory/Chest: Present: Clear to Auscultation, Good Air Exchange, Other ( CTA b/l, no w/r/r, no accessory muscle use noted) Cardiovascular: Present: Regular Rate and Rhythm, Normal S1, S2. No: Murmurs Abdomen: Present: Normal Bowel Sounds, Other (well nourished male, no focal tenderness, mild mid abd bloating is noted, no gross distention, no rigidity/ masses/guarding noted; no morris's sign, no mcburney's point tenderness). No: Tenderness, Distention Rectal: Present: Gross Blood, Normal Rectal Tone, Other (no ext hemorrhoids noted, no fissures/fistulas noted; + dark stool noted on rectal exam; + [place]) Back: Present: Normal Inspection. No: CVA Tenderness, Midline Tenderness, Paraspinal Tenderness Upper Extremity: Present: Normal Inspection, Normal ROM, NORMAL PULSES, Neurovascularly Intact, Capillary Refill < 2s. No: Deformity Lower Extremity: Present: Normal Inspection, NORMAL PULSES, Normal ROM, Neurovascularly Intact, Capillary Refill < 2 s. No: Deformity Neurological: Present: GCS=15, CN II-XII Intact, Speech Normal, Other (CNII-XII WNL, no facial asymmetries, no slurr speech, NIH stroke scale ~ 0) Skin: Present: Warm, Normal Color, Other (cap refill < 1sec, no ulcerations, no petechiae, no rashes, no pallor) Psychiatric: Present: Alert, Oriented x 3, Normal Insight, Normal Concentration Medical Decision Making ED Course and Treatment: 09/10/17 11:40 Impression: gi bleed i have consider all the differential diagnosis regarding pt's chief medical complaints/clinical findings, including but are not limited to: gi bleed A/P: gi bleed - labs - iv - supportive care - observe/reevaluation 09/10/17 12:42 pt is doing well currently pt is comfortable pt is not in any distress pt is made aware of his medical results agrees with admission Dr Marquez is at bedside, pt's recent PCP, evaluated patient at bedside, will admit patient, NPO for now and would like to consult Dr Welch for further eval/monitor Re-evaluation Time: 12:42 Reassessment Condition: Improving,but remains with symptoms - Critical Care Critical Care Minutes: 30 minutes Critical Care Time: Excluding Proc Time - Lab Interpretations Lab Results: 09/10/17 12:02 09/10/17 12:02 Lab Results 09/10/17 12:02: Sodium 147, Potassium 5.1 H, Chloride 108 H, Carbon Dioxide 27, Anion Gap 18, BUN 19, Creatinine 1.1, Est GFR ( Amer) > 60, Est GFR (Non- Af Amer) > 60, Random Glucose 113 H, Calcium 9.8, Magnesium 2.0, Total Bilirubin 0.5, AST 27, ALT 43, Alkaline Phosphatase 56, Total Protein 7.2, Albumin 4.7, Globulin 2.6, Albumin/Globulin Ratio 1.8, Lipase 52 09/10/17 12:02: PT 11.6, INR 1.01, APTT 29.6 09/10/17 12:02: WBC 5.7, RBC 4.31, Hgb 13.2 L, Hct 39.0 L, MCV 90.5, MCH 30.6, MCHC 33.8, RDW 12.7, Plt Count 179, MPV 10.2, Gran % 77.4 H, Lymph % (Auto) 16.8 L, George % (Auto) 4.7, Eos % (Auto) 0.9 L, Baso % (Auto) 0.2, Gran # 4.44, Lymph # (Auto) 1.0 L, George # (Auto) 0.3, Eos # (Auto) 0.1, Baso # (Auto) 0.01 09/10/17 12:00: Urine Color Yellow, Urine Appearance Clear, Urine pH 6.0, Ur Specific [place] 1.010, Urine Protein Negative, Urine Glucose (UA) 100 H, Urine Ketones Negative, Urine Blood Negative, Urine Nitrate Negative, Urine Bilirubin Negative, Urine Urobilinogen 0.2, Ur Leukocyte Esterase Negative I have reviewed the lab results: Yes Interpretation: Abnormal lab values (mildly elevated K; otherwise WNL) - Medication Orders Current Medication Orders: Sodium Chloride (Sodium Chloride 0.9%) 1,000 mls @ 100 mls/hr IV .Q10H STA Stop: 09/10/17 21:34 Last Admin: 09/10/17 12:04 Dose: 100 mls/hr eMAR Start Stop Document 09/10/17 12:04 (Rec: 09/10/17 12:04 [id number]) Intravenous Solution Start Date 09/10/17 Start Time 12:04 Discontinued Medications Pantoprazole Sodium (Protonix Inj) 40 mg IVP STAT STA Stop: 09/10/17 11:36 Last Admin: 09/10/17 12:03 Dose: 40 mg IVP Administration Document 09/10/17 12:03 (Rec: 09/10/17 12:04 [id number] Charges for Administration # of IVP Administrations 1 Pneumococcal Polyvalent Vaccine (Pneumovax 23 Vaccine) 0.5 ml IM .ONCE ONE Stop: 09/10/17 13:41 Disposition/Present on Arrival - Present on Arrival Any Indicators Present on Arrival: No History of DVT/PE: No History of Uncontrolled Diabetes: No Urinary Catheter: No History of Decub. Ulcer: No History Surgical Site Infection Following: None - Disposition Have Diagnosis and Disposition been Completed?: Yes Diagnosis: GI bleed Disposition: HOSPITALIZED Disposition Time: 12:43 Patient Plan: Admission Patient Problems: Current Active Problems Problem Status Onset GI bleed Acute Condition: STABLE
[2017-09-10 12:06] LABS: BASO # 0.01 K/mm3 (0.0-2.0); BASO % 0.2 % (0.0-3.0); EOS # 0.1 (0.0-0.7); EOS % 0.9 % (1.5-5.0); GRAN # 4.44 (1.4-6.5); GRAN % 77.4 % (50.0-68.0); HEMOGLOBIN 13.2 g/dL (14.0-18.0); LYMPH % 16.8 % (22.0-35.0); MEAN CELL VOLUME 90.5 fl (80.0-105.0); MEAN CORPUSCULAR HEMOGLOBIN 30.6 pg (25.0-35.0); MEAN CORPUSCULAR HGB CONC 33.8 g/dl (31.0-37.0); MEAN PLATELET VOLUME 10.2 fl (7.0-11.0); MONO # 0.3 (0.1-0.6); MONO % 4.7 % (1.0-6.0); RBC 4.31 10^6/uL (3.5-6.1); RED CELL DISTRIBUTION WIDTH 12.7 % (11.5-14.5); WHITE BLOOD COUNT 5.7 10^3/ul (4.5-11.0)
[2017-09-10 12:16] LABS: URINE BILIRUBIN NEGATIVE (NEGATIVE); URINE BLOOD NEGATIVE (NEGATIVE); URINE GLUCOSE (UA) 100 mg/dL (NEGATIVE); URINE LEUKOCYTE ESTERASE NEGATIVE Leu/uL (NEGATIVE); URINE PROTEIN NEGATIVE mg/dL (<30 mg/dL); URINE UROBILINOGEN 0.2 E.U./dL (<1 E.U./dL)
[2017-09-10 12:16] LABS: INR 1.01 (0.93-1.08); PARTIAL THROMBOPLASTIN TIME 29.6 Seconds (25.1-36.5); PROTHROMBIN TIME 11.6 SECONDS (9.4-12.5)
[2017-09-10 12:17] LABS: URINE APPEARANCE CLEAR (CLEAR); URINE COLOR YELLOW (YELLOW)
[2017-09-10 12:30] LABS: ALB/GLOB RATIO 1.8 (1.1-1.8); ALBUMIN 4.7 g/dL (3.0-4.8); ALT/SGPT 43 U/L (7-56); AST/SGOT 27 U/L (17-59); BLOOD UREA NITROGEN 19 mg/dL (7-21); CALCIUM 9.8 mg/dL (8.4-10.5); GFR AFRICAN-AMERICAN > 60; GFR NON-AFRICAN AMERICAN > 60; LIPASE 52 U/L (23-300)
[2017-09-10] MEDS ORDERED: Pneumococcal 23-Valent Vaccine IM ONE (13:40)
[2017-09-10] MEDS: Sodium Chloride 0.9% 1,000 ML IV SCH (21:30)
[2017-09-11 07:17] LABS: HEMOGLOBIN 11.7 g/dL (14.0-18.0); MEAN CELL VOLUME 90.9 fl (80.0-105.0); MEAN CORPUSCULAR HEMOGLOBIN 30.3 pg (25.0-35.0); MEAN CORPUSCULAR HGB CONC 33.3 g/dl (31.0-37.0); MEAN PLATELET VOLUME 10.4 fl (7.0-11.0); RBC 3.86 10^6/uL (3.5-6.1); WHITE BLOOD COUNT 5.8 10^3/ul (4.5-11.0)
[2017-09-11 07:57] LABS: BLOOD UREA NITROGEN 15 mg/dL (7-21); GFR AFRICAN-AMERICAN > 60; GFR NON-AFRICAN AMERICAN > 60
[2017-09-11] MEDS: Sodium Chloride 0.9% 1,000 ML IV SCH (10:00)
--- NOTE | 2017-09-11 11:20 | HP ---
DATE OF EXAM: 09/10/2017 The patient was seen and examined in the Emergency Room on 09/10/2017. CHIEF COMPLAINT: GI bleeding, abdominal pain. HISTORY OF PRESENT ILLNESS: Mr. Alejandro Saenz is a 57-year-old male well known to me from previous two admissions that was for pericarditis, came with sudden onset of bloody bowel movement three episodes today, one episode in the [facility] Emergency Room. 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 He was taking indomethacin full tablet and was educated to take half of the tablet and today early in the morning, he did have bowel movement, but after that he felt that gush of loose dark bowel movement that was not painful at that moment, but patient started later on with abdominal pain and cramps, bloated. No fever. No chills. No sweating. No chest pain. No shortness of breath. No palpitation. Just feeling fatigued and tired. No appetite change. No urinary changes. No loss of consciousness. No exertional shortness of breath. Patient has contacted on-call doctor, Dr. Eagle and was instructed to come to Emergency Room for further evaluation. PAST MEDICAL HISTORY: Pericarditis while using indomethacin; hypertension; tingling and numbness that is work related, dizziness, history of eye surgery, retina repair. FAMILY HISTORY: Father and mother, noncontributory. HABITS: Never smoking. Alcohol, yes occasionally. Substance abuse, refused. ALLERGIES: PATIENT IS NOT ALLERGIC WITH MEDICATION. HOME MEDICATIONS: Simvastatin, Diovan plus HCTZ, Protonix. REVIEW OF SYSTEMS: Patient was seen and examined at the bedside in ER; that moment, having abdominal cramps and has big bowel movement with clots of blood. No headache. No dizziness. No chest pain. No shortness of breath. No fever. No chills. PHYSICAL EXAMINATION: VITAL SIGNS: Temperature 98.4, pulse 88, respiratory rate 16, blood pressure 142/90. HEENT: Head: Normocephalic, atraumatic. Eyes: PERRLA. Extraocular muscles intact. Conjunctivae clear. Nose patent. Mucous membrane moist. NECK: Supple. No carotid bruit, JVD, or thyromegaly. CHEST: Bilaterally symmetrical. HEART: S1 and S2 positive. LUNGS: Clear to auscultation. ABDOMEN: Soft. Bowel sounds present. No organomegaly. EXTREMITIES: No edema. No cyanosis. NEUROLOGIC: Patient is awake and alert. Moving all four extremities. No focal deficit. LABORATORY DATA: White blood cell is 5.7, hemoglobin 13.2, hematocrit 39, platelets 179. Sodium 147, potassium 5.1, BUN 19, creatinine 1.1, glucose 113. ASSESSMENT AND PLAN: Mr. Alejandro Saenz is a 57-year-old male with anemia, hyperkalemia, hyperchloremia, hyperglycemia, came with gastrointestinal bleeding, history of pericarditis while using indomethacin since 08/17, saw a airborne weapons technical manager a couple of days ago, was instructed to take half of the tablet, now has abdominal cramps. We admitted the patient, holding indomethacin, restarted losartan, Protonix just started. GI consult called with Dr. Welch and Dr.Peter Eagle's consult is started. Repeat labs. The patient started on clear liquid diet, will advance as tolerated. We will follow up. Alyssa Marquez MD MTDD
--- NOTE | 2017-09-11 13:20 | CP.PCM.CON ---
History of Present Illness - History of Present Illness History of Present Illness: Lying in bed, no distress,denies chest pain Reason for consultation: Cardiac evaluation, pericarditis, hypertension, hyperlipidemia melena taking Indocin. Brief history of present illness: A 57 year old male who came in to the ER due to bloody stools x 3. He felt bloated with abdominal cramps. history of pericarditis,hypertension,hyperlipidemia numbness of arms, arthritis, eye surgery due to retinal repair. Patient on Indocin for recent pericarditis. He was recently seen by Dr. Eagle's office. Seen and examined by me and Dr. Diallo Consult written covering Dr.Peter Eagle Review of Systems - Constitutional Constitutional: As Per HPI - EENT Additional comments: retinal repair - Cardiovascular Additional comments: pericarditis - Respiratory Additional comments: denies any problems - Gastrointestinal Additional comments: melena x 3 with abdominal cramps - Genitourinary Additional comments: denies problems - Musculoskeletal Additional comments: numbness on fingers,arthritis - Neurological Additional comments: denies any problem - Endocrine Additional Comments: denies high blood sugar Past Patient History - Infectious Disease Hx of Infectious Diseases: None - Tetanus Immunizations Tetanus Immunization: Unknown - Past Medical History & Family History Past Medical History?: Yes - Past Social History Smoking Status: Never Smoked - CARDIAC Hx Cardiac Disorders: Yes (Pericarditis) Hx Hypertension: Yes - PULMONARY Hx Respiratory Disorders: No - NEUROLOGICAL Hx 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, 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) Hx Dizziness: Yes - HEENT Hx HEENT Problems: Yes (Eye surgery Retina repair) - RENAL Hx Chronic Kidney Disease: No Hx Dialysis: No - ENDOCRINE/METABOLIC Hx Endocrine Disorders: No - HEMATOLOGICAL/ONCOLOGICAL Hx Blood Disorders: No - INTEGUMENTARY Hx Dermatological Problems: No - MUSCULOSKELETAL/RHEUMATOLOGICAL Hx Musculoskeletal Disorders: Yes 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) - GASTROINTESTINAL Hx Gastrointestinal Disorders: No - GENITOURINARY/GYNECOLOGICAL Hx Genitourinary Disorders: No - PSYCHIATRIC Hx Psychophysiologic Disorder: No Hx Substance Use: No - SURGICAL HISTORY Hx Amputation: No Hx Appendectomy: No Hx Cardiac Catheterization: No Hx Cholecystectomy: No Hx Coronary Stent: No Hx Gastric Bypass Surgery: No Hx Hysterectomy: No Hx Joint Replacement: No Hx Kidney Transplant: No Hx Liver Transplant: No Hx Mastectomy: No Hx Musculoskeletal Surgery: No Hx Open Heart Surgery: No Hx Orthopedic Surgery: No Hx Splenectomy: No Hx Valve Replacement: No - ANESTHESIA Hx Anesthesia: Yes Hx Anesthesia Reactions: No Hx Malignant Hyperthermia: No Meds Allergies/Adverse Reactions: Allergies Allergy/AdvReac Type Severity Reaction Status Date / Time No Known Allergies Allergy Verified 08/16/17 01:21 - Medications Medications: Current Medications Sodium Chloride (Sodium Chloride 0.9%) 1,000 mls @ 60 mls/hr IV .[id number] [facility] Last Admin: 09/10/17 21:30 Dose: 60 mls/hr Losartan Potassium (Cozaar) 50 mg PO DAILY [facility] Last Admin: 09/11/17 09:50 Dose: 50 mg Pantoprazole Sodium (Protonix Inj) 40 mg IVP DAILY [facility] Last Admin: 09/11/17 09:50 Dose: 40 mg Physical Exam - Constitutional Appears: No Acute Distress - Eye Exam Eye Exam: Normal appearance - ENT Exam ENT Exam: Mucous Membranes Moist - Respiratory Exam Respiratory Exam: Clear to Auscultation Bilateral, NORMAL BREATHING PATTERN - Cardiovascular Exam Cardiovascular Exam: +S1, +S2 - GI/Abdominal Exam GI & Abdominal Exam: Normal Bowel Sounds, Soft Additional comments: melena in ER - Extremities Exam Extremities exam: Positive for: normal capillary refill - Neurological Exam Neurological exam: Alert, Oriented x3 - Psychiatric Exam Psychiatric exam: Normal Affect, Normal Mood - Skin Skin Exam: Intact, Normal Color, Warm Results - Vital Signs Recent Vital Signs: Last Vital Signs Temp 97.3 F L 09/11/17 08:31 Pulse 63 09/11/17 09:50 Resp 18 09/11/17 08:31 BP 134/88 09/11/17 09:50 Pulse Ox 98 09/11/17 08:31 - Labs Result Diagrams: 09/11/17 06:30 09/11/17 06:30 Labs: Laboratory Results - last 24 hr 09/11/17 09/11/17 09/11/17 06:30 06:30 06:30 WBC 5.8 RBC 3.86 Hgb 11.7 L Hct 35.1 L MCV 90.9 MCH 30.3 MCHC 33.3 RDW 13.0 Plt Count 169 MPV 10.4 Sodium 144 Potassium 4.9 Chloride 107 Carbon Dioxide 28 Anion Gap 13 BUN 15 Creatinine 1.1 Est GFR ( Amer) > 60 Est GFR (Non-Af Amer) > 60 Random Glucose 123 H Calcium 9.0 TSH 3rd Generation 1.16 Assessment & Plan - Assessment and Plan (Free Text) Assessment: A 57 year old male who came in to the ER due to bloody stools x 3. He felt bloated with abdominal cramps. History of pericarditis and was treated with Indocin, Echo and stress test were normal at that time.. hypertension, hyperlipidemia , numbness of arms, arthritis, eye surgery due to retinal repair. He was recently seen by Dr. Eagle's office. Review of cardiac work up: Echo done 08/16/17-Good LV function, Mildly dilated LA and RA. Trace TR, no pulmonary hypertension Stress test done 08/25/17-LVEF 65 %, normal results Plan: Hold Indocin 12 lead EKG For possible colonoscopy GI on consult Previous cardiac work up reviewed Clear for colonoscopy with moderate risk On Losartan 50 mg daily Closely monitor hemoglobin/hematocrit Continue current medications Continue current treatment Dr. Larry Eagle will continue care tomorrow Thank you for giving us the opportunity to take care of Mr. Allen Colon - Date & Time Date: 09/11/17 Time: 11:00
--- NOTE | 2017-09-11 14:07 | CARD ---
APPROVED REPORT EKG Measurement Heart [id number] <Conclusion> Normal sinus rhythm Possible Acute pericarditis Abnormal ECG
[2017-09-11 14:58] LABS: IRON 85 ug/dL (45-180)
[2017-09-11 14:59] LABS: HDL CHOLESTEROL 30 mg/dL (29-60)
[2017-09-11 15:08] LABS: % IRON SATURATION 28 % (20-55); TOTAL IRON BINDING CAPACITY 305 ug/dL (261-462)
[2017-09-11 15:09] LABS: LDL CHOLESTEROL 47 mg/dL (0-129)
--- NOTE | 2017-09-12 03:36 | PN ---
DATE: 09/11/2017 SUBJECTIVE: Patient is seen and examined at the bedside, looking comfortable. No more abdominal cramps. Normal bowel movement. Patient is still on clear liquid diet. Waiting for Dr. Welch's input. He is supposed to go for echocardiography. No hematuria or hematochezia. PHYSICAL EXAMINATION: VITAL SIGNS: Temperature 98.1, pulse 64, blood pressure 120/83, respiratory rate 19. HEENT: Head is normocephalic and atraumatic. Eyes, PERRLA. Extraocular muscles are intact. Conjunctivae are clear. Nose is patent. NECK: Supple. No carotid bruits. No JVD or thyromegaly. CHEST: Bilaterally symmetrical. HEART: S1, S2 positive. LUNGS: Clear to auscultation. ABDOMEN: Soft. Bowel sounds present. No organomegaly. EXTREMITIES: No edema. No cyanosis. NEUROLOGIC: Patient is awake and alert, moving all 4 extremities. No focal deficit. MEDICATIONS: Cozaar, Protonix, NS. LABORATORY DATA: White blood cells 5.8; hemoglobin 11.7, on admission it was 13.2, there is almost 2-g loss of blood; hematocrit 35.1; platelets 159. Sodium 144, potassium 4.9, BUN 15, creatinine 1.1, glucose 123. Triglycerides 227, cholesterol 114. ASSESSMENT AND PLAN: Mr. Alejandro Saenz is a 57-year-old male came with gastrointestinal bleeding, drop of hemoglobin of 2 g; history of hyperkalemia, improved; hyperglycemia; hypertriglyceridemia; glucosuria; history of pericarditis; was on indomethacin. Echocardiography done. History of arthritis may be related to his profession. History of retinal repair. May be colonoscopy. GI is on the case or may be endoscopy. Patient is on clear liquid diet. Waiting for input of Dr. Welch. On losartan hemoglobin and hematocrit. Continue current medications. Repeat labs. We will follow up. Alyssa Marquez MD MTDD
[2017-09-12 07:36] LABS: HEMOGLOBIN 11.6 g/dL (14.0-18.0); MEAN CELL VOLUME 89.8 fl (80.0-105.0); MEAN CORPUSCULAR HEMOGLOBIN 30.4 pg (25.0-35.0); MEAN CORPUSCULAR HGB CONC 33.8 g/dl (31.0-37.0); MEAN PLATELET VOLUME 10.2 fl (7.0-11.0); RBC 3.82 10^6/uL (3.5-6.1); RED CELL DISTRIBUTION WIDTH 12.7 % (11.5-14.5); WHITE BLOOD COUNT 4.8 10^3/ul (4.5-11.0)
[2017-09-12 07:50] LABS: BLOOD UREA NITROGEN 11 mg/dL (7-21); CALCIUM 9.2 mg/dL (8.4-10.5); GFR AFRICAN-AMERICAN > 60; GFR NON-AFRICAN AMERICAN > 60
[2017-09-12 13:08] LABS: FOLATE > 20.0 ng/mL
[2017-09-12] MEDS ORDERED: Propofol 10 mg/ml Inj (20 ML) ONE (14:59)
[2017-09-12] MEDS ORDERED: Lidocaine 2% Inj (20ml) ONE (14:59)
[2017-09-12] MEDS ORDERED: Sodium Chloride 0.9% 1,000 ML IV SCH (15:30)
--- NOTE | 2017-09-12 19:53 | CON ---
DATE: 09/12/2017 CARDIOLOGY CONSULTATION HISTORY: The patient is a 57-year-old male who presents with a GI bleed. The patient's past medical history is notable for recent diagnosis of pericarditis, in which he has been treated on Indocin for the past week. The patient denies shortness of breath. Denies chest pain. All of a sudden, the patient became dizzy and was brought to the emergency room where he was found to have a low hemoglobin. SOCIAL HISTORY: The patient does not smoke. REVIEW OF SYSTEMS: A 14-point review of systems reviewed in detail. The patient is totally asymptomatic now and he has resolution of his chest pain. PHYSICAL EXAMINATION: VITAL SIGNS: Blood pressure 133/74, heart rate in the 70s. NECK: Negative JVD. LUNGS: Without rales. HEART: S1, S2. EXTREMITIES: Without edema. EKG is unremarkable. LABORATORY DATA: Hemoglobin is 11.6. Glucose 122. IMPRESSION: 1. Status post gastrointestinal bleed, likely secondary to Indocin. 2. Recent pericarditis which is now resolved. 3. Resolution of chest pain. 4. Anemia. 5. Borderline diabetes mellitus. Given these findings, the patient is for GI workup today. We will stop his Indocin. There is no evidence for persisted pericarditis. Larry Eagle MD
--- NOTE | 2017-09-13 03:13 | PN ---
DATE: 09/12/2017 SUBJECTIVE: Patient is seen and examined at bedside in the morning, looking comfortable. Last night, has episode of GI bleeding. No headache, no chest pain, no palpitation. No fever, no chills. PHYSICAL EXAMINATION: VITAL SIGNS: Temperature 97.6, pulse 58, blood pressure 150/79, respiratory rate 20. HEENT: Head is normocephalic and atraumatic. Eyes, PERRLA. Extraocular muscles are intact. Conjunctivae are clear. Nose is patent. Mucous membranes are moist. NECK: Supple. No carotid bruits. No JVD or thyromegaly. CHEST: Bilaterally symmetrical. HEART: S1 and S2 positive. LUNGS: Clear to auscultation. ABDOMEN: Soft. Bowel sounds present. No organomegaly. EXTREMITIES: No edema. No cyanosis. NEUROLOGIC: Patient is awake and alert, moving all 4 extremities. No focal deficit. MEDICATIONS: Losartan, Protonix, NS. LABORATORY DATA: White blood cells 4.8, hemoglobin 11.2, hematocrit 34.3, platelets 161. Sodium 144, potassium 4.9, BUN 11, creatinine 1.1, glucose 122. ASSESSMENT AND PLAN: Mr. Alejandro Saenz is a 57-year-old male with anemia, hyperglycemia, hypercholesterolemia, came with gastrointestinal bleeding; history of pericarditis, was using indomethacin; now anemia, hemoglobin dropped. Endoscopy done by Dr. Welch. Patient has Z-line irregular 40 cm from the incisors, Gastric ulcer with clean ulcer base. One duodenal ulcer with clean ulcer base. Duodenitis. Waiting for Pathology, done from primary care physician. High dose proton pump inhibitor. Avoid nonsteroidal anti-inflammatory drugs. Sequins Winder, Dr. Larry Eagle, is on the case. Status post recent pericarditis, which is now resolved. Resolution of chest pain. Indomethacin is already stopped for this admission. No evidence of recent pericarditis. Patient will need rheumatic workup because patient is getting repeatedly pericarditis. 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 We will try to do workup as outpatient. We will follow up. Alyssa Marquez MD [facility] # [id number] [place]
[2017-09-13 06:18] LABS: HEMOGLOBIN 11.2 g/dL (14.0-18.0); MEAN CELL VOLUME 89.6 fl (80.0-105.0); MEAN CORPUSCULAR HEMOGLOBIN 30.8 pg (25.0-35.0); MEAN CORPUSCULAR HGB CONC 34.4 g/dl (31.0-37.0); RBC 3.64 10^6/uL (3.5-6.1); RED CELL DISTRIBUTION WIDTH 12.7 % (11.5-14.5); WHITE BLOOD COUNT 4.6 10^3/ul (4.5-11.0)
[2017-09-13 06:38] LABS: BLOOD UREA NITROGEN 10 mg/dL (7-21); GFR AFRICAN-AMERICAN > 60; GFR NON-AFRICAN AMERICAN > 60
[2017-09-13 08:12] VITALS: TEMP 98.5; O2SAT 97
--- NOTE | 2017-09-13 11:45 | CP.PCM.PN ---
Subjective - Date & Time of Evaluation Date of Evaluation: 09/13/17 Time of Evaluation: 10:30 - Subjective Subjective: S&E at bedside, chart reviewed. S/P EGD yesterday found to have duodenal/ gastric ulcers, no bleeding, BX obtained. Tolerating oral intake, no reports of bleeding. Having BM , report that they are still "dark" no BRBPR. HGB steady at 11 Objective - Vital Signs/Intake and Output Vital Signs (last 24 hours): Temp Pulse Resp BP Pulse Ox 98.5 F 75 18 138/91 H 97 09/13/17 08:11 09/13/17 09:17 09/13/17 08:11 09/13/17 09:17 09/13/17 08:11 Intake and Output: 09/13/17 09/13/17 06:59 18:59 Intake Total 1180 Balance 1180 - Medications Medications: Current Medications Sodium Chloride (Sodium Chloride 0.9%) 1,000 mls @ 100 mls/hr IV .Q10H [facility] Losartan Potassium (Cozaar) 50 mg PO DAILY [facility] Last Admin: 09/13/17 09:17 Dose: 50 mg Pantoprazole Sodium (Protonix Inj) 40 mg IVP DAILY [facility] Last Admin: 09/13/17 09:17 Dose: 40 mg - Labs Labs: 09/13/17 06:00 09/13/17 06:00 PT 11.6 SECONDS (9.4-12.5) 09/10/17 12:02 INR 1.01 (0.93-1.08) 09/10/17 12:02 APTT 29.6 Seconds (25.1-36.5) 09/10/17 12:02 - Constitutional Appears: No Acute Distress - Head Exam Head Exam: NORMOCEPHALIC - Eye Exam Eye Exam: Normal appearance. absent: Scleral icterus - ENT Exam ENT Exam: Mucous Membranes Moist - Neck Exam Neck Exam: Normal Inspection - Respiratory Exam Respiratory Exam: NORMAL BREATHING PATTERN. absent: Respiratory Distress - Cardiovascular Exam Cardiovascular Exam: +S1, +S2 - GI/Abdominal Exam GI & Abdominal Exam: Soft, Normal Bowel Sounds. absent: Tenderness - Rectal Exam Rectal Exam: NORMAL INSPECTION - Extremities Exam Extremities Exam: absent: Calf Tenderness, Pedal Edema - Neurological Exam Neurological Exam: Alert, Awake, Oriented x3 - Skin Skin Exam: Dry, Warm Assessment and Plan - Assessment and Plan (Free Text) Assessment: ASSESSMENT: GI Bleeding Anemia S/P EGD duodenal/gastric ulcer, no bleeding,s/p BX H/O Pericarditis on Indomethacin, now resolved PLAN: monitor h/h for overt GI bleeding continue PPI: Recommend Protonix 40 mg BID for 2 weeks than can decrease to daily avoid NSAIDS diet as tolerated FU egd patho Will need repeat EGD fU healing of ulcers. Seen and discussed w/ Dr. Welch.
[2017-09-13] MEDS ORDERED: Pantoprazole 40 mg EC Tab PO SCH (16:00)
[2017-09-13 17:01] VITALS: RESP 19
--- NOTE | 2017-09-14 00:09 | PN ---
DATE: 09/13/2017 SUBJECTIVE: The patient was seen and examined at bedside, looking comfortable. No nausea, vomiting, diarrhea. No hematuria or hematochezia. No more blood in the stool. No headache. No dizziness. PHYSICAL EXAMINATION: VITAL SIGNS: Temperature 98.5, pulse 76, blood pressure 133/58, respiratory rate 18. HEENT: Head normocephalic, atraumatic. Eyes PERRLA. Extraocular muscles intact. Conjunctivae clear. Nose patent. NECK: Supple. No carotid bruit. No JVD or thyromegaly. CHEST: Bilaterally symmetrical. HEART: S1 and S2 positive. LUNGS: Clear to auscultation. ABDOMEN: Soft. Bowel sounds positive. No organomegaly. EXTREMITIES: No edema. No cyanosis. NEUROLOGICAL: The patient is awake and alert. Moving all 4 extremities. No focal deficits. LABORATORY DATA: White blood cells 4.6, hemoglobin 11.2, hematocrit 32.6, platelets 152. Sodium 144, potassium 4.4, BUN 10, creatinine 1, glucose 106. MEDICATIONS: Losartan, Protonix, NS. ASSESSMENT AND PLAN: Mr. Alejandro Saenz, 57-year-old male with history of multiple time pericarditis, this time came with gastrointestinal bleeding, status post esophagogastroduodenoscopy, found to have duodenal and gastric ulcers. No bleeding at the moment. Now, tolerating oral intake. No reports of more bleeding. Having bowel movement. According to the patient, bowel movement is still dark. Do not look like fresh blood. Hemoglobin and hematocrit are stable around about 11. Plan is monitoring hemoglobin and hematocrit for overt gastrointestinal bleeding. Continue proton pump inhibitor. Recommended Protonix 40 p.o. b.i.d. for 2 weeks. Then decrease to daily. No nonsteroidal antiinflammatory drugs. Diet as tolerated. Follow up esophagogastroduodenoscopy pathology. Need repeat esophagogastroduodenoscopy to follow up the healing of the ulcers. The patient went for echocardiography, those are pending. Gastrointestinal and deep venous thrombosis prophylaxis. Repeat labs. We will follow up. Alyssa Marquez MD
[2017-09-14] MEDS ORDERED: Pantoprazole 40 mg EC Tab PO SCH (07:30)
[2017-09-14 09:11] VITALS: BP 134/85; PULSE 73
--- NOTE | 2017-09-14 09:49 | PN ---
DATE: 09/14/2017 CARDIOLOGY FOLLOWUP SUBJECTIVE: The patient is chest pain free. PHYSICAL EXAMINATION: VITAL SIGNS: Blood pressure is 134/85 with the heart rates in the 70s. NECK: Negative JVD. LUNGS: Without rales. HEART: Reveals S1, S2. EXTREMITIES: Without edema. LABORATORY DATA: Hemoglobin is 11.2, which is stable. Chemistries are unremarkable. Echocardiogram reveals no pericardial effusion. IMPRESSION: 1. Status post gastrointestinal bleed. 2. History of pericarditis, which is now resolved after a week of Indocin. 3. Peptic ulcer disease, likely exacerbated by his Indocin. 4. Anemia. PLAN: Given these findings, the patient's cardiac status is stable. There is no evidence for active GI bleed. The patient can be discharged from a cardiac perspective. Followup and instructions have been given to the patient in detail. Larry Eagle MD
== END 2017-09-14 10:32 | disposition home or self-care (01) | DRG 378 ==
LOC: ED 10:48 → ERH 12:39 → 3RSO 14:12
PROVIDERS: ADMIT Internal Medicine; ATTEND Internal Medicine
PROC: 0DB58ZX Excision of Esophagus, Via Natural or Artificial Opening Endoscopic, Diagnostic (ICD-10-PCS; 2017-09-12)
PROC: 0DB68ZX Excision of Stomach, Via Natural or Artificial Opening Endoscopic, Diagnostic (ICD-10-PCS; principal; 2017-09-12 14:30)
DX: K92.2 Gastrointestinal hemorrhage, unspecified (principal); I31.9 Disease of pericardium, unspecified; K25.9 Gastric ulcer, unspecified as acute or chronic, without hemorrhage or perforation; K26.9 Duodenal ulcer, unspecified as acute or chronic, without hemorrhage or perforation; K29.80 Duodenitis without bleeding; K29.50 Unspecified chronic gastritis without bleeding; I10 Essential (primary) hypertension; R42 Dizziness and giddiness; E87.5 Hyperkalemia; D64.9 Anemia, unspecified; R73.9 Hyperglycemia, unspecified; M19.90 Unspecified osteoarthritis, unspecified site; E78.5 Hyperlipidemia, unspecified; E78.1 Pure hyperglyceridemia; E78.00 Pure hypercholesterolemia, unspecified

== ENCOUNTER 2017-12-15 06:36 | Observation (INO) | payer BC ==
--- NOTE | 2017-12-15 07:01 | ED PDOC ---
Arrival/HPI - General Chief Complaint: Chest Pain Time Seen by Provider: 12/15/17 06:57 - History of Present Illness Narrative History of Present Illness (Text): 12/15/17 06:59 Pt. to ED PMHX gastric ulcers,HTN,HLD,pericarditis to ED with c/o burning chest discomfort since yesterday afternoon following EGD procedure.States discomfort felt in his shoulders.No associated SOB.No N/V/D. 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 [employer]) Hx Dizziness: Yes - HEENT Hx HEENT Disorder: Yes (Eye surgery Retina repair) - Renal Hx Renal Disorder: No Hx Dialysis: No - Endocrine/Metabolic Hx Endocrine Disorders: No - Hematological/Oncological Hx Blood Transfusions: No Hx Blood Transfusion Reaction: No - Integumentary Hx Dermatological Disorder: No - Musculoskeletal/Rheumatological Hx Musculoskeletal Disorders: Yes - Gastrointestinal Hx Gastrointestinal Disorders: No - Genitourinary/Gynecological Hx Genitourinary Disorders: No - Psychiatric Hx Emotional Abuse: No Hx Physical Abuse: No Hx Substance Use: No - Past Surgical History Past Surgical History: No Previous - Surgical History Hx Amputation: No Hx Appendectomy: No Hx Cardiac Catheterization: No Hx Cholecystectomy: No Hx Coronary Stent: No Hx Gastric Bypass Surgery: No Hx Hysterectomy: No Hx Joint Replacement: No Hx Kidney Transplant: No Hx Liver Transplant: No Hx Mastectomy: No Hx Musculoskeletal Surgery: No Hx Open Heart Surgery: No Hx Orthopedic Surgery: No Hx Splenectomy: No Hx Valve Replacement: No - Anesthesia Hx Anesthesia Reactions: Yes Hx Malignant Hyperthermia: No - Suicidal Assessment Feels Threatened In Home Enviroment: No Family/Social History - Physician Review Nursing Documentation Reviewed: Yes Family/Social History: Hypertension Smoking Status: Never Smoked Hx Alcohol Use: Yes (occasionly) Amount per day: 1 Hx Substance Use: No Hx Substance Use Treatment: No Allergies/Home Meds Allergies/Adverse Reactions: Allergies No Known Allergies Allergy (Verified 08/16/17 01:21) Home Medications: Home Meds Medication Instructions Recorded Confirmed Simvastatin 20 mg PO HS 03/12/14 12/15/17 Azilsartan Medoxomil [Edarbi] 40 mg PO DAILY 12/15/17 12/15/17 Review of Systems - Review of Systems Constitutional: Normal Eyes: Normal ENT: Normal Respiratory: Normal Cardiovascular: Chest Pain Gastrointestinal: Normal Genitourinary Male: Normal Musculoskeletal: Normal Skin: Normal Neurological: Normal Endocrine: Normal Hemo/Lymphatic: Normal Psychiatric: Normal Physical Exam Temperature: Afebrile Blood Pressure: Normal Pulse: Regular Respiratory Rate: Normal Appearance: Positive for: Well-Appearing, Non-Toxic, Comfortable Pain Distress: None Mental Status: Positive for: Alert and Oriented X 3 - Systems Exam Head: Present: Atraumatic, Normocephalic Pupils: Present: PERRL Extroacular Muscles: Present: EOMI Conjunctiva: Present: Normal Mouth: Present: Moist Mucous Membranes Neck: Present: Normal Range of Motion Respiratory/Chest: Present: Clear to Auscultation, Good Air Exchange. No: Respiratory Distress, Accessory Muscle Use Cardiovascular: Present: Regular Rate and Rhythm, Normal S1, S2. No: Murmurs Abdomen: No: Tenderness, Distention, Peritoneal Signs Back: Present: Normal Inspection Upper Extremity: Present: Normal Inspection. No: Cyanosis, Edema Lower Extremity: Present: Normal Inspection. No: Edema Neurological: Present: GCS=15, CN II-XII Intact, Speech Normal, Motor Func Grossly Intact, Normal Sensory Function Skin: Present: Warm, Dry, Normal Color. No: Rashes Psychiatric: Present: Alert, Oriented x 3, Normal Insight, Normal Concentration Medical Decision Making ED Course and Treatment: 12/15/17 07:05 Case endorsed to /pending labs/CXR/reassess/final disposition - RAD Interpretation Radiology Orders: 12/15/17 06:55 X-RAY [CHEST PORTABLE] [RAD] Stat - EKG Interpretation EKG Interpretation (Text): 12/15/17 06:50 EKG- NSR@75,early repolarization,NSSTT changes Interpreted by ED Physician: Yes Type: 12 lead EKG - Medication Orders Current Medication Orders: Discontinued Medications Famotidine (Pepcid) 20 mg IVP STAT STA Stop: 12/15/17 07:04 Disposition/Present on Arrival - Present on Arrival Any Indicators Present on Arrival: No History of DVT/PE: No History of Uncontrolled Diabetes: No Urinary Catheter: No History of Decub. Ulcer: No History Surgical Site Infection Following: None - Disposition Have Diagnosis and Disposition been Completed?: No Diagnosis: Chest pain Disposition Time: 07:06 Condition: STABLE Discharge Instructions (ExitCare): Chest Pain (ED) Forms: [employer] (Bulgarian)
[2017-12-15 07:10] LABS: HEMOGLOBIN 14.6 g/dL (14.0-18.0); MEAN CELL VOLUME 87.6 fl (80.0-105.0); MEAN CORPUSCULAR HEMOGLOBIN 30.7 pg (25.0-35.0); MEAN PLATELET VOLUME 10.8 fl (7.0-11.0); RBC 4.76 10^6/uL (3.5-6.1); RED CELL DISTRIBUTION WIDTH 13.3 % (11.5-14.5)
[2017-12-15 07:20] LABS: ALB/GLOB RATIO 1.7 (1.1-1.8); ALBUMIN 4.5 g/dL (3.0-4.8); ALT/SGPT 42 U/L (7-56); AST/SGOT 36 U/L (17-59); BLOOD UREA NITROGEN 13 mg/dL (7-21); CALCIUM 9.5 mg/dL (8.4-10.5); GFR AFRICAN-AMERICAN > 60; GFR NON-AFRICAN AMERICAN > 60; INR 1.03; PROTHROMBIN TIME 11.8 SECONDS (9.4-12.5)
[2017-12-15 07:22] LABS: PARTIAL THROMBOPLASTIN TIME 29.8 Seconds (25.1-36.5)
[2017-12-15 07:30] LABS: TROPONIN I < 0.01 ng/mL
--- NOTE | 2017-12-15 07:44 | ED PDOC ---
Physical Exam Vital Signs Reviewed: Yes Vital Signs Temp Pulse Resp BP Pulse Ox 12/15/17 07:23 97.9 F 68 18 155/96 H 98 Temperature: Afebrile Blood Pressure: Normal Pulse: Regular Respiratory Rate: Normal Appearance: Positive for: Well-Appearing, Non-Toxic, Comfortable Pain Distress: None Mental Status: Positive for: Alert and Oriented X 3 Medical Decision Making ED Course and Treatment: 12/15/17 07:42 Patient endorsed to me by Dr. Escobar. Patient reports having sudden onset of substernal chest burning radiating to neck. Upon examination, discomfort persists. Blood pressure and pulse equal to both extremities. EKG is unchanged from previous. Chest X-ray shows no pneumo stinum. Patient denies any shortness of breath and pleuritic pain. Troponin unremarkable. 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 - Lab Interpretations Lab Results: 12/15/17 06:45 12/15/17 06:45 Lab Results 12/15/17 06:45: Sodium 142, Potassium 4.4, Chloride 105, Carbon Dioxide 26, Anion Gap 15, BUN 13, Creatinine 1.0, Est GFR ( Amer) > 60, Est GFR (Non- Af Amer) > 60, Random Glucose 135 H, Calcium 9.5, Total Bilirubin 0.9, AST 36, ALT 42, Alkaline Phosphatase 60, Lactate Dehydrogenase 411, Total Creatine Kinase 111, Troponin I < 0.01, Total Protein 7.2, Albumin 4.5, Globulin 2.7, Albumin/Globulin Ratio 1.7 12/15/17 06:45: PT 11.8, INR 1.03, APTT 29.8 12/15/17 06:45: WBC 5.0, RBC 4.76, Hgb 14.6 D, Hct 41.7 L, MCV 87.6, MCH 30.7, MCHC 35.0, RDW 13.3, Plt Count 185, MPV 10.8 - RAD Interpretation Radiology Orders: 12/15/17 06:55 X-RAY [CHEST PORTABLE] [RAD] Stat - Medication Orders Current Medication Orders: Discontinued Medications Famotidine (Pepcid) 20 mg IVP STAT STA Stop: 12/15/17 07:04 Last Admin: 12/15/17 07:21 Dose: 20 mg IVP Administration Document 12/15/17 07:21 [facility] [place]15[place]17 07:21 [facility] [id number] Charges for Administration # of IVP Administrations 1 - Scribe Statement The provider has reviewed the documentation as recorded by the Jhoana Allen Provider Scribe Attestation: All medical record entries made by the Scribmike were at my direction and personally dictated by me. I have reviewed the chart and agree that the record accurately reflects my personal performance of the history, physical exam, medical decision making, and the department course for this patient. I have also personally directed, reviewed, and agree with the discharge instructions and disposition. Disposition/Present on Arrival - Present on Arrival Any Indicators Present on Arrival: No History of DVT/PE: No History of Uncontrolled Diabetes: No Urinary Catheter: No History of Decub. Ulcer: No History Surgical Site Infection Following: None - Disposition Have Diagnosis and Disposition been Completed?: Yes Diagnosis: Chest pain Disposition: HOSPITALIZED Disposition Time: 08:00 Patient Plan: Discharge Condition: STABLE
--- NOTE | 2017-12-15 08:29 | RAD ---
Date of service: 12/15/2017 HISTORY: Chest Pain COMPARISON: 08/29/2017 FINDINGS: LUNGS: The lungs are well inflated and clear. PLEURA: No significant pleural effusion identified, no pneumothorax apparent. CARDIOVASCULAR: Normal. OSSEOUS STRUCTURES: No significant abnormalities. VISUALIZED UPPER ABDOMEN: Normal. OTHER FINDINGS: None. IMPRESSION: No active pulmonary disease.
[2017-12-15] MEDS ORDERED: Pantoprazole 40 mg EC Tab PO STA (09:28)
--- NOTE | 2017-12-15 09:38 | CP.PCM.CON ---
<Anastacia Marti - Last Filed: 12/15/17 09:29> History of Present Illness - History of Present Illness History of Present Illness: GI Fellow PGY5 Consult Note This is a 57yM with pmhx of PUD, HTN, HLD, pericarditis presenting with complaints of left sided chest pain radiating up to breastbone and left neck started yesterday evening. This is associated with SOb and pain feels similar to pericarditis pain. Pt had an EGD with Dr. Welch [place] [facility] [place] yesterday morning for followup on Gastric and Duodenal ulcers found on EGD 09/2017. Pt reports he did well after the procedure except had some bloating and gas. He went swimming yesterday afternoon and feels he may have strained himself. Chest pain started two hours after swimming and he reports TTP of chest wall. Pt initially had an EGD in 09/2017 for anemia and found to have a gastric and duodenal Angelina Class III ulcers, gastritis, duodenitis with path neg for H.pylori. Pt denies any rectal bleeding and had 2 BM this morning. Negative troponins in the ER are negative and EKG, he as given one dose of Pepcid with minimal relief. 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[employer]) Hx Dizziness: Yes - HEENT Hx HEENT Problems: Yes (Eye surgery Retina repair) - RENAL Hx Chronic Kidney Disease: No Hx Dialysis: No - ENDOCRINE/METABOLIC Hx Endocrine Disorders: No - HEMATOLOGICAL/ONCOLOGICAL Hx Blood Transfusions: No Hx Blood Transfusion Reaction: No - INTEGUMENTARY Hx Dermatological Problems: No - MUSCULOSKELETAL/RHEUMATOLOGICAL Hx Musculoskeletal Disorders: Yes - GASTROINTESTINAL Hx Gastrointestinal Disorders: No - GENITOURINARY/GYNECOLOGICAL Hx Genitourinary Disorders: No - PSYCHIATRIC Hx Emotional Abuse: No Hx Physical Abuse: No Hx Substance Use: No - SURGICAL HISTORY Hx Amputation: No Hx Appendectomy: No Hx Cardiac Catheterization: No Hx Cholecystectomy: No Hx Coronary Stent: No Hx Gastric Bypass Surgery: No Hx Hysterectomy: No Hx Joint Replacement: No Hx Kidney Transplant: No Hx Liver Transplant: No Hx Mastectomy: No Hx Musculoskeletal Surgery: No Hx Open Heart Surgery: No Hx Orthopedic Surgery: No Hx Splenectomy: No Hx Valve Replacement: No - ANESTHESIA Hx Anesthesia Reactions: Yes Hx Malignant Hyperthermia: No Meds Allergies/Adverse Reactions: Allergies Allergy/AdvReac Type Severity Reaction Status Date / Time No Known Allergies Allergy Verified 12/15/17 11:50 - Medications Medications: Current Medications Pantoprazole Sodium (Protonix Ec Tab) 40 mg PO STAT STA Stop: 12/15/17 09:29 Pantoprazole Sodium (Protonix Ec Tab) 40 mg PO 0600 [place] Physical Exam - Constitutional Appears: Non-toxic, No Acute Distress - Head Exam Head Exam: ATRAUMATIC, NORMAL INSPECTION, NORMOCEPHALIC - Eye Exam Eye Exam: EOMI, Normal appearance, PERRL Pupil Exam: PERRL - ENT Exam ENT Exam: Mucous Membranes Moist - Neck Exam Neck exam: Positive for: Full Rom, Normal Inspection - Respiratory Exam Respiratory Exam: Clear to Auscultation Bilateral, NORMAL BREATHING PATTERN - Cardiovascular Exam Cardiovascular Exam: REGULAR RHYTHM, RRR, +S1, +S2 Additional comments: TTP pf chest wall and sternal area - GI/Abdominal Exam GI & Abdominal Exam: Normal Bowel Sounds, Soft. absent: Distended, Firm, Guarding, Organomegaly, Tenderness - Rectal Exam Rectal Exam: Deferred - Extremities Exam Extremities exam: Positive for: full ROM, normal inspection - Back Exam Back exam: NORMAL INSPECTION - Neurological Exam Neurological exam: Alert, Oriented x3 - Psychiatric Exam Psychiatric exam: Normal Affect, Normal Mood - Skin Skin Exam: Dry, Intact, Normal Color, Warm Results - Vital Signs Recent Vital Signs: Last Vital Signs Temp 98 F 12/15/17 09:26 Pulse 67 12/15/17 09:26 Resp 17 12/15/17 09:26 BP 136/88 12/15/17 09:26 Pulse Ox 97 12/15/17 09:26 - Labs Result Diagrams: 12/15/17 06:45 12/15/17 06:45 Assessment & Plan - Assessment and Plan (Free Text) Assessment: This is a 57yM presenting with chest pain. 1. Chest pain likely costochondritis 2. PUD s/p EGD 3. Bloating 4. Hx of pericarditis Plan: -Continue supportive care with pain control -Pt is s/p EGD with healing ulcers -Will order Protonix po daily and simethicone one time dose for gas/bloating post procedure -Chest pain maybe from costochondritis after swimming yesterday and on physical exam -Would avoid NSAIDs in setting of PUD -Cardio cs pending -Will continue to follow closely <Jennyfer Welch V - Last Filed: 12/15/17 22:48> Meds - Medications Medications: Current Medications Atorvastatin Calcium (Lipitor) 10 mg PO DIN [facility] Last Admin: 12/15/17 18:49 Dose: 10 mg Azilsartan Medoxomil [Edarbi] 40 Mg ( Home Med) 40 mg PO DAILY [facility] Pantoprazole Sodium (Protonix Ec Tab) 40 mg PO BID [facility] Last Admin: 12/15/17 19:11 Dose: 40 mg Results - Vital Signs Recent Vital Signs: Last Vital Signs Temp 97.8 F 12/15/17 19:34 Pulse 56 L 12/15/17 19:34 Resp 18 12/15/17 19:34 BP 143/80 12/15/17 17:45 Pulse Ox 97 12/15/17 09:30 - Labs Result Diagrams: 12/15/17 06:45 12/15/17 06:45 Attending/Attestation - Attestation I have personally seen and examined this patient.: Yes I have fully participated in the care of the patient.: Yes I have reviewed all pertinent clinical information: Yes Notes (Text): p 12/15/17 22:48
[2017-12-15] MEDS ORDERED: Simethicone 80 mg Chewtab PO ONE (09:45)
[2017-12-15] MEDS ORDERED: AZILSARTAN MEDOXOMIL 40 MG PO SCH (10:00)
[2017-12-15] MEDS ORDERED: Lidocaine PF 2% (5 ml) Inj (For Cardiac Arrhy) ONE (11:16)
[2017-12-15] MEDS ORDERED: Midazolam 2 MG/2 ML VIAL ONE ×2 (11:17→11:22)
[2017-12-15] MEDS ORDERED: Phenylephrine 10 mg/ml Inj ONE (11:17)
[2017-12-15] MEDS ORDERED: Iodixanol 320 MG/ML 100 ML BOTTLE IV ONE (11:18)
[2017-12-15] MEDS ORDERED: Iohexol 350mgl/ml 50 ML ONE (11:18)
[2017-12-15] MEDS ORDERED: Nitroglycerin 50mg in D5W 0 MG/0 ML BOTTLE IV ONE (11:18)
[2017-12-15] MEDS ORDERED: Iodixanol 320 MG/ML 200 ML BOTTLE IV ONE (11:18)
[2017-12-15] MEDS ORDERED: Sodium Chloride 0.9% 1,000 ML IV SCH (12:30)
--- NOTE | 2017-12-15 13:13 | CARDCATH ---
Copied To: Larry Eagle MD Attending MD: Larry Eagle MD PROCEDURE DATE: 12/15/2017 HISTORY The patient is a 57-year-old male with one of multiple admissions for chest pain. He presented with symptoms of substernal pressure starting 2 days ago, progressing to now occurring at rest. His EKG shows nonspecific ST-T changes. Because of his recurrent angina and progressive symptoms at rest, an emergency cardiac catheterization was performed. PROCEDURE: Left heart catheterization with coronary arteriography and left ventriculogram. The right femoral artery was cannulated with a 6-Syriac sheath. There were no complications. I performed moderate sedation which included the presence of an independent trained observer that assisted in monitoring the patient's level of consciousness and physiologic status. After administration of Versed and fentanyl, my intra service time was 15 minutes. Findings on catheterization revealed left ventricle that contracted normally. Estimated ejection fraction is 60%. The patient had a right dominant circulation. The RCA was within normal limits. The left main artery was within normal limits. The circumflex artery and obtuse marginal branches were within normal limits. The LAD and diagonal vessels were within normal limits. Angio-Seal was used to close the femoral artery site. The patient tolerated the procedure well. In summary, the procedure revealed unremarkable coronary arteries. Normal LV function. Given these findings, the patient's chest pain is not of cardiac origin. Will need to begin investigation to a noncardiac source of chest pain. Larry Eagle MD
[2017-12-15 14:37] VITALS: BMI 28.3
[2017-12-15] MEDS ORDERED: Pneumococcal 23-Valent Vaccine IM ONE (14:37)
--- NOTE | 2017-12-15 15:06 | CARD ---
APPROVED REPORT Date of service: 12/15/2017 EKG Measurement Heart [id number] <Conclusion> Normal sinus rhythm Possible Left atrial enlargement Early repolarization Borderline ECG
[2017-12-15] MEDS: Pantoprazole 40 mg EC Tab PO SCH (19:11)
[2017-12-15 23:39] VITALS: RESP 20; TEMP 98.2; O2SAT 98
--- NOTE | 2017-12-16 04:19 | HP ---
date 12/15/17 Copied To: Alyssa Marquez MD Attending MD: Alyssa Marquez MD CHIEF COMPLAINT: Chest pain. HISTORY OF PRESENT ILLNESS: Mr. Alejandro Saenz is a 57-year-old male with a past medical history of gastric ulcer, hypertension, hypercholesterolemia, pericarditis, came to the emergency room complaining about burning chest pain, discomfort since yesterday afternoon following EGD procedure done by Dr. Welch. He states the discomfort felt in his shoulder. No associated shortness of breath. No nausea, vomiting, or diarrhea. No hematuria or hematochezia. No fever. No chills. PAST MEDICAL HISTORY: Dizziness; eye surgery, retina repair; history of musculoskeletal pain; history of gouty arthritis; history of GI bleeding. FAMILY HISTORY: Father and mother, noncontributory. HABITS: Never smoked. Alcohol, yes occasionally. No drugs. ALLERGIES: PATIENT IS NOT ALLERGIC WITH ANY MEDICATION. HOME MEDICATIONS: Simvastatin, Edarbi. REVIEW OF SYSTEMS: Patient was seen and examined on the bedside, status post catheterization, looking comfortable. No nausea, vomiting, or diarrhea. No hematuria or hematochezia. No swelling of the legs. No fever. No chills. Nor this time chest pain. No shortness of breath. PHYSICAL EXAMINATION: VITAL SIGNS: Temperature 97.8, pulse 56, respiratory rate 18, blood pressure 143/80. HEENT: Head, normocephalic and atraumatic. Eyes, PERRLA. Extraocular muscles intact. Conjunctivae clear. Nose patent. Mucous membrane moist. NECK: Supple. No carotid bruit, JVD, or thyromegaly. CHEST: Bilaterally symmetrical. HEART: S1 and S2 positive. LUNGS: Clear to auscultation. ABDOMEN: Soft. Bowel sounds present. No organomegaly. EXTREMITIES: No edema. No cyanosis. NEUROLOGIC: Patient is awake and alert. Moving all 4 extremities. No focal deficit. LABORATORY DATA: White blood cells 5, hemoglobin 14.6, hematocrit 41.7, platelets 185. Sodium 142, potassium 4.4, BUN 13, creatinine 1, glucose 135. ASSESSMENT AND PLAN: Mr. Alejandro Saenz is a 57-year-old male, well known to me from his previous couple of hospitalizations, came with chest pain. Went for catheterization by Dr. 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 Cath revealed unremarkable coronary arteries, normal left ventricular function. Given these findings, the patient's chest pain is not of cardiac origin. We will need to begin investigation on noncardiac sources of chest pain, rule out musculoskeletal pain. GI consult called with Dr. Welch. Patient has history of gouty arthritis, history of peptic ulcer disease, gastrointestinal bleeding, hypertension, hypercholesterolemia, history of pericarditis, hyperglycemia. Looks like according to GI, patient has costochondritis, bloating, gastroesophageal reflux disease, dyspepsia, status post healing ulcers. Ordered Protonix. patient had costochondritis and according to patient's history of upper gastrointestinal bleeding, we will avoid nonsteroidal anti-inflammatory drugs. Discussion done with Dr. 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 Gastrointestinal and deep vein thrombosis prophylaxes. Repeat labs tomorrow . Alyssa Marquez MD [email or web address]
[2017-12-16] MEDS ORDERED: Pantoprazole 40 mg EC Tab PO SCH (06:00)
[2017-12-16 07:08] LABS: HEMOGLOBIN 13.8 g/dL (14.0-18.0); MEAN CELL VOLUME 88.6 fl (80.0-105.0); MEAN CORPUSCULAR HEMOGLOBIN 29.7 pg (25.0-35.0); MEAN CORPUSCULAR HGB CONC 33.5 g/dl (31.0-37.0); MEAN PLATELET VOLUME 10.8 fl (7.0-11.0); RBC 4.65 10^6/uL (3.5-6.1); RED CELL DISTRIBUTION WIDTH 13.4 % (11.5-14.5); WHITE BLOOD COUNT 5.2 10^3/ul (4.5-11.0)
[2017-12-16 07:28] LABS: IRON 65 ug/dL (45-180)
[2017-12-16 07:29] LABS: BLOOD UREA NITROGEN 14 mg/dL (7-21); CALCIUM 9.2 mg/dL (8.4-10.5); GFR AFRICAN-AMERICAN > 60; GFR NON-AFRICAN AMERICAN > 60; HDL CHOLESTEROL 48 mg/dL (29-60)
[2017-12-16 07:38] LABS: % IRON SATURATION 18 % (20-55); TOTAL IRON BINDING CAPACITY 366 ug/dL (261-462)
[2017-12-16 07:40] LABS: LDL CHOLESTEROL 62 mg/dL (0-129)
[2017-12-16] MEDS: Pantoprazole 40 mg EC Tab PO SCH (09:53)
[2017-12-16 09:57] VITALS: BP 156/73
[2017-12-16 11:21] VITALS: PULSE 66
[2017-12-16 12:51] LABS: FOLATE > 20.0 ng/mL
--- NOTE | 2017-12-16 13:12 | PN ---
Copied To: Larry Eagle MD Attending MD: Larry Eagle MD DATE: 12/16/2017 CARDIOLOGY FOLLOWUP SUBJECTIVE: The patient is stable post cardiac catheterization. His coronary arteries are normal. PHYSICAL EXAMINATION: VITAL SIGNS: Stable. NECK: Negative JVD. LUNGS: Without rales. HEART: Reveal S1, S2. EXTREMITIES: Without edema. DATA: Laboratories are unremarkable. IMPRESSION: The patient is stable from a cardiac perspective post cardiac catheterization and his chest pain is better. From a cardiac perspective, the patient can be discharged and followed up as an outpatient. Larry Eagle MD
--- NOTE | 2017-12-16 14:19 | CP.PCM.PN ---
Subjective - Date & Time of Evaluation Date of Evaluation: 12/16/17 Time of Evaluation: 09:00 - Subjective Subjective: GI Fellow PGY 5 Progress Note Pt seen and evaluated at bedside, pt doing well after cardiac cath which was normal. Chest pain is better but still TTP. ROS: A 12pt ROS was negative except as above. Objective - Vital Signs/Intake and Output Vital Signs (last 24 hours): Temp Pulse Resp BP Pulse Ox 98.2 F 66 20 156/73 H 98 12/16/17 06:18 12/16/17 10:00 12/16/17 06:18 12/16/17 09:53 12/16/17 09:53 Intake and Output: 12/16/17 12/16/17 06:59 18:59 Intake Total 240 Output Total 1 Balance 239 - Labs Labs: 12/16/17 06:30 12/16/17 06:30 PT 11.8 SECONDS (9.4-12.5) 12/15/17 06:45 INR 1.03 12/15/17 06:45 APTT 29.8 Seconds (25.1-36.5) 12/15/17 06:45 - Constitutional Appears: Non-toxic, No Acute Distress - Head Exam Head Exam: ATRAUMATIC, NORMAL INSPECTION, NORMOCEPHALIC - Eye Exam Eye Exam: EOMI, Normal appearance, PERRL Pupil Exam: PERRL - ENT Exam ENT Exam: Mucous Membranes Moist - Neck Exam Neck Exam: Full ROM, Normal Inspection - Respiratory Exam Respiratory Exam: Clear to Ausculation Bilateral, NORMAL BREATHING PATTERN - Cardiovascular Exam Cardiovascular Exam: REGULAR RHYTHM, RRR, +S1, +S2 - GI/Abdominal Exam GI & Abdominal Exam: Soft, Normal Bowel Sounds. absent: Distended, Organomegaly - Rectal Exam Rectal Exam: Deferred - Extremities Exam Extremities Exam: Full ROM, Normal Inspection - Back Exam Back Exam: Full ROM, NORMAL INSPECTION - Neurological Exam Neurological Exam: Alert, Awake, Oriented x3 - Psychiatric Exam Psychiatric exam: Normal Affect, Normal Mood - Skin Skin Exam: Dry, Intact, Normal Color, Warm Assessment and Plan - Assessment and Plan (Free Text) Assessment: This is a 57yM presenting with chest pain. 1. Chest pain likely costochondritis 2. PUD s/p EGD 3. Bloating 4. Hx of pericarditis Plan: -Continue supportive care with pain control -Pt is s/p EGD with healing ulcers -Protonix po daily -Chest pain maybe from costochondritis after swimming and tenderness on physical exam -Would avoid NSAIDs in setting of PUD -Cardio cs s/p cardiac cath negative -Pt okay for discharge home
== END 2017-12-16 12:42 | disposition home or self-care (01) ==
LOC: ED 06:36 → ERH 07:49 → 2RSO 12:03
PROVIDERS: ADMIT Internal Medicine; ATTEND Internal Medicine
DX: M94.0 Chondrocostal junction syndrome [Tietze] (principal); I10 Essential (primary) hypertension; I31.9 Disease of pericardium, unspecified; K21.9 Gastro-esophageal reflux disease without esophagitis; K29.70 Gastritis, unspecified, without bleeding; K29.80 Duodenitis without bleeding; M10.9 Gout, unspecified; R73.9 Hyperglycemia, unspecified; E78.00 Pure hypercholesterolemia, unspecified; E78.5 Hyperlipidemia, unspecified; D64.9 Anemia, unspecified; R14.0 Abdominal distension (gaseous); Z87.11 Personal history of peptic ulcer disease
CPT/HCPCS: 36415; 71045; 80048; 80053; 80061; 82550; 82607; 82746; 83036; 83540; 83550; 83615; 84443; 84484; 85027; 85610; 85730; 93005; 93458; 96374; 99152; 99153; 99285; C1760; C1769; C2629; G0378; J1644; J2250; J3010; J7030; Q9966